=== PATIENT | female | born 1955 | race African-American/Black ===

== ENCOUNTER 2019-03-23 12:22 | Inpatient (IN) | payer MEDICAID ==
[~2019-03-23] VITALS: Ht 157.5 cm; Wt 72.6 kg
[2019-03-23] MEDS ORDERED: Thiamine 100mg tab ORAL ONE (12:30)
[2019-03-23] MEDS ORDERED: Albuterol/Ipratropium 3ml neb HHN ONE (12:30)
--- NOTE | 2019-03-23 12:50 | NUR ---
ED Nurse Note: Patient brought in by ambulance from longterm due to evaluation. Per patient, patient left the facility, had a beer and came back to the facility today. Patient awake, alert, oriented x 3. Regular, unlabored breathing noted. Reports no pain. No facial grimacing or guarding noted. Placed patient on teletypesetter monitor. Bed in lowest position. Provided warm blanket.
--- NOTE | 2019-03-23 12:51 | NUR ---
ED Nurse Note: RN attempted to insert IV x 1, but unsucessful at this time. Covered RUE with warm blanket. Patient tolerated the procedure without difficulty.
--- NOTE | 2019-03-23 12:55 | NUR ---
ED Nurse Note: RT contacted fro breathing tx.
--- NOTE | 2019-03-23 13:14 | NUR ---
ED Nurse Note: certified hyperbaric technician contacted for blood draw. Will be here within 15-20 min.
[2019-03-23 13:36] VITALS: BP 150/74
--- NOTE | 2019-03-23 13:43 | NUR ---
ED Nurse Note:urine sent to labs
[2019-03-23 14:31] LABS: BASOPHILS % (AUTO) 1.6 % (0.0-2.0); EOSINOPHILS % (AUTO) 5.1 % (0.0-3.0); HEMATOCRIT 38.8 % (37.0-47.0); MEAN CORPUSCULAR VOLUME 84 FL (80-99); MONOCYTES % (AUTO) 17.7 % (1.0-10.0); NEUTROPHILS % (AUTO) 51.6 % (45.0-75.0); PLATELET COUNT 355 K/UL (150-450); RED CELL DISTRIBUTION WIDTH 12.5 % (11.6-14.8); WHITE BLOOD COUNT 3.5 K/UL (4.8-10.8)
[2019-03-23 14:55] LABS: ANION GAP 8 mmol/L (5-15); BLOOD UREA NITROGEN 18 mg/dL (7-18); CALCIUM 9.6 MG/DL (8.5-10.1); CARBON DIOXIDE 26 MMOL/L (21-32); CHLORIDE 106 MMOL/L (98-107); CREATININE 1.1 MG/DL (0.55-1.30); POTASSIUM 3.9 MMOL/L (3.5-5.1); SODIUM 140 MMOL/L (136-145)
--- NOTE | 2019-03-23 15:08 | Emergency Room Report ---
History of Present Illness General Chief Complaint: General Complaint Source: Medical Record Present Illness HPI She is a 64-year-old female sent in from nursing facility after increased altered mental status and confusion. Patient had some prior history of COPD as well as schizophrenia. She was noted to be more confused than usual. She apparently had become confused at her facility. Gradual onset of symptoms. Denies any vomiting or diarrhea. History is limited by poor historian. Allergies: Uncoded Allergies: PENICILLIN (Allergy, Unknown, 03/23/19) Patient History Past Medical History: see triage record Reviewed Nursing Documentation: PMH: Agreed; PSxH: Agreed Nursing Documentation-PMH Past Medical History: No History, Except For Hx Cardiac Problems: Yes - Cardiomyopathy, CAD, heart failure, hyperlipidemia Hx Hypertension: Yes - DVT in LLE Hx Gastrointestinal Problems: Yes - Liver Cirrhosis, GERD History Of Psychiatric Problem: Yes - Schizophrenia Hx Neurological Problems: Yes - Dementia Hx Cerebrovascular Accident: Yes - left non-dominant side Review of Systems All Other Systems: negative except mentioned in HPI Physical Exam Vital Signs Date Time Temp Pulse Resp B/P (MAP) Pulse Ox O2 Delivery O2 Flow Rate FiO2 03/23/19 12:21 98.4 110 18 170/93 (118) 94 Room Air 03/23/19 13:26 21 Sp02 EP Interpretation: reviewed, normal General Appearance: normal inspection, well appearing, no apparent distress, alert, GCS 15 Head: atraumatic ENT: normal ENT inspection, hearing grossly normal, normal voice Neck: normal inspection, full range of motion, supple, no bony tend Respiratory: normal inspection, lungs clear, normal breath sounds, no respiratory distress, no retraction, no wheezing Cardiovascular #1: regular rate, rhythm, no edema Gastrointestinal: normal inspection, normal bowel sounds, non tender, soft, no guarding, no hernia Genitourinary: no CVA tenderness Musculoskeletal: normal inspection, back normal, normal range of motion Neurologic: normal inspection, alert, oriented x3, responsive, speech normal Psychiatric: normal inspection, judgement/insight normal, mood/affect normal Medical Decision Making Diagnostic Impression: Primary Impression: Encephalopathy Additional Impression: Leukopenia ER Course Patient presented for altered mental status. Differential diagnosis included but was not limited to encephalopathy, anemia, ischemic stroke, subarachnoid hemorrhage, hypoglycemia, spinal cord injury, neurodegenerative disorder, urinary tract infection, hypoxemia. Because of complexity of patient's case laboratory tests and imaging studies were ordered. Patient was noted to have some prior history of schizophrenia. Is unclear what the patient's baseline mental status is and patient was noted to have some difficulty with respirations. She was given breathing treatment with some improvement in her breathing. Lab testing showed some evidence of leukopenia. Dr. Niraj Lau was contacted for inpatient management due to primary care physician. Labs Test 03/23/19 13:40 03/23/19 14:15 Urine Opiates Screen Negative (NEGATIVE) Urine Barbiturates Screen Negative (NEGATIVE) Phencyclidine (PCP) Screen Negative (NEGATIVE) Urine Amphetamines Screen Negative (NEGATIVE) Urine Benzodiazepines Screen Negative (NEGATIVE) Urine Cocaine Screen Negative (NEGATIVE) Urine Marijuana (THC) Screen Negative (NEGATIVE) White Blood Count 3.5 K/UL (4.8-10.8) Red Blood Count 4.60 M/UL (4.20-5.40) Hemoglobin 13.0 G/DL (12.0-16.0) Hematocrit 38.8 % (37.0-47.0) Mean Corpuscular Volume 84 FL (80-99) Mean Corpuscular Hemoglobin 28.2 PG (27.0-31.0) Mean Corpuscular Hemoglobin Concent 33.4 G/DL (32.0-36.0) Red Cell Distribution Width 12.5 % (11.6-14.8) Platelet Count 355 K/UL (150-450) Mean Platelet Volume 4.8 FL (6.5-10.1) Neutrophils (%) (Auto) 51.6 % (45.0-75.0) Lymphocytes (%) (Auto) 24.0 % (20.0-45.0) Monocytes (%) (Auto) 17.7 % (1.0-10.0) Eosinophils (%) (Auto) 5.1 % (0.0-3.0) Basophils (%) (Auto) 1.6 % (0.0-2.0) Sodium Level 140 MMOL/L (136-145) Potassium Level 3.9 MMOL/L (3.5-5.1) Chloride Level 106 MMOL/L (98-107) Carbon Dioxide Level 26 MMOL/L (21-32) Anion Gap 8 mmol/L (5-15) Blood Urea Nitrogen 18 mg/dL (7-18) Creatinine 1.1 MG/DL (0.55-1.30) Estimat Glomerular Filtration Rate > 60 mL/min (>60) Glucose Level 101 MG/DL (74-106) Calcium Level 9.6 MG/DL (8.5-10.1) Last Vital Signs Date Time Temp Pulse Resp B/P (MAP) Pulse Ox O2 Delivery O2 Flow Rate FiO2 03/23/19 13:43 63 16 Room Air 21 03/23/19 13:36 98.4 150/74 100 Status: improved Disposition: HOME, SELF-CARE Condition: Stable Referrals: Niraj Lau MD (PCP) Ever Reeves MD Mar 23, 2019 15:08
[2019-03-23 15:09] LABS: ALANINE AMINOTRANSFERASE 28 U/L (12-78); ALBUMIN 3.5 G/DL (3.4-5.0); ALBUMIN/GLOBULIN RATIO 0.7 (1.0-2.7); ALKALINE PHOSPHATASE 153 U/L (46-116); ASPARTATE AMINO TRANSFERASE 24 U/L (15-37); BILIRUBIN,TOTAL 0.5 MG/DL (0.2-1.0)
[2019-03-23 15:40] VITALS: BP 138/86
[2019-03-23] MEDS ORDERED: COLACE100 MG ORAL (16:06)
[2019-03-23] MEDS ORDERED: XARELTO10 MG ORAL (16:06)
[2019-03-23] MEDS ORDERED: FENOFIBRATE48 MG ORAL (16:06)
[2019-03-23] MEDS ORDERED: ZYPREXA5 MG ORAL (16:06)
[2019-03-23] MEDS ORDERED: MELATONIN5 M5 ORAL (16:06)
[2019-03-23] MEDS ORDERED: SERTRALINE HCL50 MG ORAL (16:06)
[2019-03-23] MEDS ORDERED: CALCIUM CARBON500 M1 PO (16:06)
[2019-03-23] MEDS ORDERED: SPIRONOLACTONE50 MG ORAL (16:06)
[2019-03-23] MEDS ORDERED: COREG3.125 MG ORAL (16:06)
[2019-03-23] MEDS ORDERED: ISOSORBIDE DINI10 MG ORAL (16:06)
[2019-03-23] MEDS ORDERED: AMIODARONE HCL400 M1 ORAL (16:06)
[2019-03-23] MEDS ORDERED: FEROSUL325 M1 PO (16:06)
--- NOTE | 2019-03-23 16:15 | NUR ---
NURSE NOTES: Received report from CHE Chaidez RN.
--- NOTE | 2019-03-23 16:20 | NUR ---
ED Nurse Note:called report to [facility] [address] - given to nurse Colin
[2019-03-23 16:30] VITALS: BP 123/78
--- NOTE | 2019-03-23 16:30 | NUR ---
NURSE NOTES: Patient came to the unit with sharon. Pt a/o x 4. Pt has left side weakness. Skin is intact. Unit orientation was given to pt. Will continue to monitor.
--- NOTE | 2019-03-23 19:40 | NUR ---
HAND-OFF: Report given to ALICE Sandoval. Pt is stable.
[2019-03-23] MEDS ORDERED: D5 1/2NS w/KCl 20mEq 1,000 ML IV SCH (20:00)
[2019-03-23 20:29] VITALS: BP 112/66
[2019-03-23] MEDS ORDERED: Tums 500mg ORAL PRN (21:15)
--- NOTE | 2019-03-23 22:21 | NUR ---
NURSE NOTE: Pt is A/Ox4 with stable VS. Orders reviewed and physical assessment completed. Fall precautions continued. Skin is intact and heels are floated on a pillow. Pt has on depends that she brought from her senior living. Call newby is within reach. Pt complained of left leg pain, MD Niraj Stallings paged at approx [phone], voicemail left. Will continue to monitor.
[2019-03-24] VITALS (8 sets, daily range): BP systolic 112–137; BP diastolic 71–83
[2019-03-24 03:23] LABS: APPEARANCE,URINE CLEAR; BILIRUBIN, URINE NEGATIVE (NEGATIVE); COLOR,URINE PALE YELLOW; GLUCOSE, URINE (UA) NEGATIVE (NEGATIVE); KETONES,URINE NEGATIVE (NEGATIVE); LEUKOCYTE ESTERASE ,URINE 1+ (NEGATIVE); NITRITE,URINE POSITIVE (NEGATIVE); PH,URINE 5 (4.5-8.0); PROTEIN,URINE NEGATIVE (NEGATIVE); UROBILINOGEN,URINE NORMAL MG/DL (0.0-1.0)
[2019-03-24 06:52] LABS: % IRON SATURATION 17 % (15-50); IRON 54 ug/dL (50-175); TOTAL IRON BINDING CAPACITY 319 ug/dL (250-450)
[2019-03-24 06:56] LABS: ALANINE AMINOTRANSFERASE 25 U/L (12-78); ALBUMIN 2.9 G/DL (3.4-5.0); ALBUMIN/GLOBULIN RATIO 0.7 (1.0-2.7); ALKALINE PHOSPHATASE 141 U/L (46-116); ANION GAP 5 mmol/L (5-15); ASPARTATE AMINO TRANSFERASE 19 U/L (15-37); BILIRUBIN,TOTAL 0.3 MG/DL (0.2-1.0); BLOOD UREA NITROGEN 22 mg/dL (7-18); CARBON DIOXIDE 28 MMOL/L (21-32); CHLORIDE 107 MMOL/L (98-107); CHOLESTEROL 241 MG/DL (< 200); CREATININE 1.2 MG/DL (0.55-1.30); FERRITIN 54 NG/ML (8-388); HDL CHOLESTEROL 39 MG/DL (40-60); SODIUM 140 MMOL/L (136-145); TRIGLYCERIDES 153 MG/DL (30-150)
[2019-03-24 07:29] LABS: GAMMA GLUTAMYL TRANSPEPTIDASE 86 U/L (5-85); PHOSPHORUS 3.2 MG/DL (2.5-4.9)
[2019-03-24 07:35] LABS: HEMATOCRIT 35.1 % (37.0-47.0); HEMOGLOBIN 11.8 G/DL (12.0-16.0); MEAN CORPUSCULAR VOLUME 85 FL (80-99); PLATELET COUNT 300 K/UL (150-450); RED BLOOD COUNT 4.14 M/UL (4.20-5.40); RED CELL DISTRIBUTION WIDTH 12.2 % (11.6-14.8); WHITE BLOOD COUNT 3.2 K/UL (4.8-10.8)
[2019-03-24] MEDS ORDERED: Spironolactone 50mg tab ORAL SCH (09:00)
[2019-03-24] MEDS: Docusate 100mg cap ORAL SCH ×3 (09:00→18:00)
[2019-03-24] MEDS ORDERED: Sertraline 50mg tab ORAL SCH (09:00)
[2019-03-24] MEDS ORDERED: Amiodarone 200mg tab ORAL ONE (09:00)
[2019-03-24] MEDS ORDERED: Xarelto 10mg tab ORAL SCH (09:00)
[2019-03-24] MEDS ORDERED: Thiamine 100mg tab ORAL SCH (09:00)
--- NOTE | 2019-03-24 09:20 | Consultation ---
History of Present Illness General Date patient seen: Mar 24, 2019 Present Illness Allergies: Coded Allergies: PENICILLINS (Verified Allergy, Intermediate, Hives, 03/23/19) Medication History Scheduled Amiodarone Hcl* (Amiodarone Hcl*), 200 MG ORAL EVERY 12 HOURS, (Reported) Carvedilol (Coreg), 3.125 MG ORAL EVERY 12 HOURS, (Reported) Docusate Sodium* (Colace*), 100 MG ORAL DAILY, (Reported) Fenofibrate Nanocrystallized (Fenofibrate), 48 MG ORAL DAILY, (Reported) Isosorbide Dinitrate* (Isordil*), 20 MG ORAL EVERY 6 HOURS, (Reported) Olanzapine* (Zyprexa*), 5 MG ORAL DAILY, (Reported) Rivaroxaban (Xarelto*), 20 MG ORAL DAILY, (Reported) Sertraline Hcl* (Zoloft*), 50 MG ORAL DAILY, (Reported) Spironolactone* (Aldactone*), 50 MG ORAL DAILY, (Reported) Scheduled PRN Melatonin (Melatonin), 5 MG ORAL BEDTIME PRN for Insomnia, (Reported) Miscellaneous Medications Calcium Carbonate (Calcium Carbonate), 500 MG PO, (Reported) Ferrous Sulfate (Ferosul), 325 MG PO, (Reported) Patient History Healthcare decision maker Resuscitation status Full Code Advanced Directive on File Physical Exam Last 24 Hour Vital Signs Date Time Temp Pulse Resp B/P (MAP) Pulse Ox O2 Delivery O2 Flow Rate FiO2 03/24/19 08:00 98.4 66 18 120/71 (87) 97 03/24/19 05:32 117/78 03/24/19 04:22 98.1 62 18 123/80 (94) 94 03/24/19 00:00 97.7 65 18 112/73 (86) 94 03/23/19 22:02 114/72 03/23/19 20:29 98.1 74 20 112/66 (81) 98 03/23/19 20:19 74 112/66 03/23/19 16:47 Room Air 03/23/19 16:30 99.2 77 16 123/78 (93) 98 03/23/19 16:27 98.4 69 16 138/86 100 Room Air 21 03/23/19 15:40 98.4 69 16 138/86 100 Room Air 21 03/23/19 13:43 63 16 Room Air 21 03/23/19 13:36 98.4 72 16 150/74 100 Room Air 21 03/23/19 13:28 63 16 100 Room Air 21 62 18 98 03/23/19 13:26 86 20 99 Room Air 21 03/23/19 12:21 98.4 110 18 170/93 (118) 94 Room Air Intake and Output 03/23/19 03/24/19 19:00 07:00 Intake Total 620 ml 740 ml Balance 620 ml 740 ml Intake Oral 620 ml 240 ml IV Total 500 ml # Voids 1 2 Laboratory Tests Test 03/23/19 13:40 03/23/19 14:15 03/23/19 23:30 03/24/19 04:50 Urine Opiates Screen Negative (NEGATIVE) Urine Barbiturates Screen Negative (NEGATIVE) Phencyclidine (PCP) Screen Negative (NEGATIVE) Urine Amphetamines Screen Negative (NEGATIVE) Urine Benzodiazepines Screen Negative (NEGATIVE) Urine Cocaine Screen Negative (NEGATIVE) Urine Marijuana (THC) Screen Negative (NEGATIVE) White Blood Count 3.5 K/UL (4.8-10.8) L 3.2 K/UL (4.8-10.8) L Red Blood Count 4.60 M/UL (4.20-5.40) 4.14 M/UL (4.20-5.40) L Hemoglobin 13.0 G/DL (12.0-16.0) 11.8 G/DL (12.0-16.0) L Hematocrit 38.8 % (37.0-47.0) 35.1 % (37.0-47.0) L Mean Corpuscular Volume 84 FL (80-99) 85 FL (80-99) Mean Corpuscular Hemoglobin 28.2 PG (27.0-31.0) 28.4 PG (27.0-31.0) Mean Corpuscular Hemoglobin Concent 33.4 G/DL (32.0-36.0) 33.5 G/DL (32.0-36.0) Red Cell Distribution Width 12.5 % (11.6-14.8) 12.2 % (11.6-14.8) Platelet Count 355 K/UL (150-450) 300 K/UL (150-450) Mean Platelet Volume 4.8 FL (6.5-10.1) L 4.9 FL (6.5-10.1) L Neutrophils (%) (Auto) 51.6 % (45.0-75.0) % (45.0-75.0) Lymphocytes (%) (Auto) 24.0 % (20.0-45.0) % (20.0-45.0) Monocytes (%) (Auto) 17.7 % (1.0-10.0) H % (1.0-10.0) Eosinophils (%) (Auto) 5.1 % (0.0-3.0) H % (0.0-3.0) Basophils (%) (Auto) 1.6 % (0.0-2.0) % (0.0-2.0) Sodium Level 140 MMOL/L (136-145) 140 MMOL/L (136-145) Potassium Level 3.9 MMOL/L (3.5-5.1) 4.0 MMOL/L (3.5-5.1) Chloride Level 106 MMOL/L (98-107) 107 MMOL/L (98-107) Carbon Dioxide Level 26 MMOL/L (21-32) 28 MMOL/L (21-32) Anion Gap 8 mmol/L (5-15) 5 mmol/L (5-15) Blood Urea Nitrogen 18 mg/dL (7-18) 22 mg/dL (7-18) H Creatinine 1.1 MG/DL (0.55-1.30) 1.2 MG/DL (0.55-1.30) Estimat Glomerular Filtration Rate > 60 mL/min (>60) 54.9 mL/min (>60) Glucose Level 101 MG/DL (74-106) 109 MG/DL (74-106) H Calcium Level 9.6 MG/DL (8.5-10.1) 9.0 MG/DL (8.5-10.1) Total Bilirubin 0.5 MG/DL (0.2-1.0) 0.3 MG/DL (0.2-1.0) Aspartate Amino Transf (AST/SGOT) 24 U/L (15-37) 19 U/L (15-37) Alanine Aminotransferase (ALT/SGPT) 28 U/L (12-78) 25 U/L (12-78) Alkaline Phosphatase 153 U/L (46-116) H 141 U/L (46-116) H C-Reactive Protein, Quantitative 2.4 mg/dL (0.00-0.90) H 1.9 mg/dL (0.00-0.90) H Total Protein 8.3 G/DL (6.4-8.2) H 7.3 G/DL (6.4-8.2) Albumin 3.5 G/DL (3.4-5.0) 2.9 G/DL (3.4-5.0) L Globulin 4.8 g/dL 4.4 g/dL Albumin/Globulin Ratio 0.7 (1.0-2.7) L 0.7 (1.0-2.7) L Thyroid Stimulating Hormone (TSH) 0.607 uiU/mL (0.358-3.740) 0.977 uiU/mL (0.358-3.740) Serum Alcohol < 3 mg/dL Urine Color Pale yellow Urine Appearance Clear Urine pH 5 (4.5-8.0) Urine Specific [place] 1.015 (1.005-1.035) Urine Protein Negative (NEGATIVE) Urine Glucose (UA) Negative (NEGATIVE) Urine Ketones Negative (NEGATIVE) Urine Blood Negative (NEGATIVE) Urine Nitrite Positive (NEGATIVE) H Urine Bilirubin Negative (NEGATIVE) Urine Urobilinogen Normal MG/DL (0.0-1.0) Urine Leukocyte Esterase 1+ (NEGATIVE) H Urine RBC 0-2 /HPF (0 - 2) Urine WBC 0-2 /HPF (0 - 2) Urine Squamous Epithelial Cells Few /LPF (NONE/OCC) Urine Bacteria Few /HPF (NONE) Differential Total Cells Counted 100 Neutrophils % (Manual) 56 % (45-75) Lymphocytes % (Manual) 22 % (20-45) Monocytes % (Manual) 15 % (1-10) H Eosinophils % (Manual) 6 % (0-3) H Basophils % (Manual) 1 % (0-2) Band Neutrophils 0 % (0-8) Platelet Estimate Adequate Platelet Morphology Normal Hemoglobin A1c 5.7 % (4.3-6.0) Uric Acid 5.6 MG/DL (2.6-7.2) Phosphorus Level 3.2 MG/DL (2.5-4.9) Magnesium Level 1.8 MG/DL (1.8-2.4) Iron Level 54 ug/dL (50-175) Total Iron Binding Capacity 319 ug/dL (250-450) Percent Iron Saturation 17 % (15-50) Unsaturated Iron Binding 265 ug/dL (112-346) Ferritin 54 NG/ML (8-388) Gamma Glutamyl Transpeptidase 86 U/L (5-85) H Pro-B-Type Natriuretic Peptide 910 pg/mL (0-125) H Triglycerides Level 153 MG/DL (30-150) H Cholesterol Level 241 MG/DL (< 200) H LDL Cholesterol 164 mg/dL (<100) H HDL Cholesterol 39 MG/DL (40-60) L Cholesterol/HDL Ratio 6.2 (3.3-4.4) H Vitamin B12 Level 386 PG/ML (193-986) Folate 6.7 NG/ML (8.6-58.9) L Height (Feet): 5 Height (Inches): 2.00 Weight (Pounds): 160 Medications Current Medications Medications (Trade) Dose Ordered Sig/Jesús Route PRN Reason Start Time Stop Time Status Last Admin Dose Admin Calcium Carbonate (Tums) 500 mg Q6H PRN ORAL heart burn 03/23/19 21:15 04/22/19 21:14 Carvedilol (Coreg) 3.125 mg EVERY 12 HOURS ORAL 03/23/19 21:00 04/22/19 20:59 03/23/19 20:19 Dextrose/ Electrolytes 1,000 ml @ 50 mls/hr Q20H IV 03/23/19 20:00 04/22/19 19:59 03/23/19 20:16 Docusate Sodium (Colace) 100 mg TID ORAL 03/24/19 09:00 04/23/19 08:59 03/24/19 09:00 Fenofibrate (Tricor) 54 mg BEDTIME ORAL 03/24/19 21:00 04/23/19 20:59 Ferrous Sulfate (Feosol) 325 mg DAILY ORAL 03/24/19 09:00 04/23/19 08:59 03/24/19 09:00 Isosorbide Dinitrate (Isordil) 20 mg EVERY 8 HOURS ORAL 03/23/19 22:00 04/22/19 21:59 03/24/19 05:32 Olanzapine (ZyPREXA) 5 mg DAILY ORAL 03/24/19 09:00 04/23/19 08:59 03/24/19 08:59 Pantoprazole (Protonix) 40 mg EVERY 12 HOURS ORAL 03/23/19 21:00 04/22/19 20:59 03/24/19 08:59 Rivaroxaban (Xarelto) 20 mg DAILY ORAL 03/24/19 09:00 04/23/19 08:59 03/24/19 09:00 Sertraline HCl (Zoloft) 50 mg DAILY ORAL 03/24/19 09:00 04/23/19 08:59 03/24/19 08:59 Spironolactone (Aldactone) 50 mg DAILY ORAL 03/24/19 09:00 04/23/19 08:59 03/24/19 08:59 Thiamine HCl (Vitamin B1) 100 mg DAILY ORAL 03/24/19 09:00 04/23/19 08:59 03/24/19 08:59 Assessment/Plan Assessment/Plan: (1) B/L Hip pain (2) B/L Hip osteoarthritis seen dictated Adrián Heller Mar 24, 2019 09:20
[2019-03-24] MEDS ORDERED: Acetaminophen 500mg (ES) tab ORAL PRN ×3 (09:30→19:45)
--- NOTE | 2019-03-24 09:30 | NUR ---
PT EVALUATION NOTE Patient seen for initial evaluation, see complete evaluation for details. Patient presents with generalized weakness and impaired functional mobility due to pain and impaired balance. Patient requires min assist for bed mobility and transfers with FWW. Patient unable to ambulate due to pain L knee with weight bearing. Patient will benefit from skilled inpatient PT intervention to address balance, safety and strength to improve level of functional mobility. Recommend discharge to SNF once medically cleared by MD. DME needs to be determined based on patient's progress. Addendum: 03/24/19 at 1214 by AISHA ABRAMS PT Amended: Links added.
--- NOTE | 2019-03-24 10:34 | NUR ---
NURSE NOTES: Pt able to answer questions appropriately, provided with bed méndez x 2 due to pt stating she can walk. Ate well for breakfast . IV remains patent.
--- NOTE | 2019-03-24 11:01 | Consultation ---
DATE OF CONSULTATION: 03/24/2019 PAIN MANAGEMENT CONSULTATION CONSULTING PHYSICIAN: Teresa Chiang M.D. REFERRING PHYSICIAN: Niraj Lau M.D. PHYSICIAN DIRECTOR OF CULTURE: Nay Ward CHIEF COMPLAINT: Bilateral hip pain. HISTORY OF PRESENT ILLNESS: This is a 64-year-old female, who is being seen on the med/surg floor of [facility] for initial pain management consultation. The patient was admitted under the care of Dr. Lau and was transferred from [facility] to hospital after drinking 1 beer and did not know she was not allowed to drink beer while in the nursing facility and due to this was transferred to the hospital. She has been complaining of bilateral hip pain. Had a history of fracture needing open reduction and internal fixation on the left hip and due to this has been in pain. We were consulted so that the patient would have adequate pain control while here in the hospital. PAST MEDICAL HISTORY: Hypertension and high cholesterol. PAST SURGICAL HISTORY: Open reduction and internal fixation of left hip, left elbow surgery. SOCIAL HISTORY: Denies smoking tobacco. Drinks alcohol occasionally and denies IV drug abuse. ALLERGIES: Penicillin. MEDICATIONS: Amiodarone, Coreg, Colace, Isordil, Zyprexa, Xarelto, Zoloft, Aldactone, melatonin. REVIEW OF SYSTEMS: Denies rash, fever, chills, sweating, dizziness, drowsiness, blurred vision, sore throat, or change in her weight. No chest pain, palpitations, or cough. No nausea, vomiting, diarrhea, or blood in the stool or urine. No bowel or bladder incontinence. No dysuria. She is complaining of bilateral hip pain. PHYSICAL EXAMINATION: GENERAL: Alert, awake, and oriented. VITAL SIGNS: Blood pressure 120/71, heart rate is 66, oxygen saturation is 97%, respirations 18, temperature is 98.4 degrees Fahrenheit. HEENT: PERRLA. NECK: Range of motion is full in all directions. No tenderness to paracervical muscles. No adenopathy. LUNGS: Clear bilaterally. HEART: S1 and S2 regular. ABDOMEN: Soft, nontender. BACK: Range of motion is full on flexion, extension. EXTREMITIES: Upper and lower extremity motion is decreased due to the patient's condition. No cyanosis. No clubbing. Sensory is intact. Reflexes are not obtainable. No adenopathy. ASSESSMENT AND PLAN: This is a 64-year-old female with bilateral hip pain, bilateral hip osteoarthritis. The patient will be started on Tylenol 500 mg tablet every 4 hours as needed for pain. Lidoderm patch to be applied to the left hip at the site of pain 12 hours on, 12 hours hours off. The patient was discussed with Dr. Chiang and Dr. Chiang concurred. We will follow the patient. Thank you very much for the courtesy of this consultation. Teresa Chiang M.D. ALISON Ward DR: RADHA JOB#: [id number] CC: LISA
--- NOTE | 2019-03-24 12:30 | NUR ---
NURSE NOTES: Pt threw lid in hallway. Sole Inker walked to room , I have been having my light on for one hour. Pt light was not on. Attempted to give pt the bedpan was reluctant to turn. Required to be informed that she was not seated on the bedpan correctly. Pt later called sql report writer back to room . Call light remains in reach.
--- NOTE | 2019-03-24 13:37 | NUR ---
Social Work This SW received notification from Meliza to assist patient with housing, ie possible [facility]. Patient is currently non-ambulatory, requiring assistance with ADLs and ambulation and requesting to return to her SNF ([facility]). This SW spoke with admissions at [facility] who is requesting chart information to be faxed to fax [phone]. Meliza, Case Management informed.
--- NOTE | 2019-03-24 13:47 | Consultation ---
History of Present Illness General Chief Complaint: General Complaint Present Illness Allergies: Coded Allergies: PENICILLINS (Verified Allergy, Intermediate, Hives, 03/23/19) Medication History Scheduled Amiodarone Hcl* (Amiodarone Hcl*), 200 MG ORAL EVERY 12 HOURS, (Reported) Carvedilol (Coreg), 3.125 MG ORAL EVERY 12 HOURS, (Reported) Docusate Sodium* (Colace*), 100 MG ORAL DAILY, (Reported) Fenofibrate Nanocrystallized (Fenofibrate), 48 MG ORAL DAILY, (Reported) Isosorbide Dinitrate* (Isordil*), 20 MG ORAL EVERY 6 HOURS, (Reported) Olanzapine* (Zyprexa*), 5 MG ORAL DAILY, (Reported) Rivaroxaban (Xarelto*), 20 MG ORAL DAILY, (Reported) Sertraline Hcl* (Zoloft*), 50 MG ORAL DAILY, (Reported) Spironolactone* (Aldactone*), 50 MG ORAL DAILY, (Reported) Scheduled PRN Melatonin (Melatonin), 5 MG ORAL BEDTIME PRN for Insomnia, (Reported) Miscellaneous Medications Calcium Carbonate (Calcium Carbonate), 500 MG PO, (Reported) Ferrous Sulfate (Ferosul), 325 MG PO, (Reported) Patient History Healthcare decision maker Resuscitation status Full Code Advanced Directive on File Physical Exam Last 24 Hour Vital Signs Date Time Temp Pulse Resp B/P (MAP) Pulse Ox O2 Delivery O2 Flow Rate FiO2 03/24/19 12:00 98.5 62 16 136/83 (100) 97 03/24/19 08:00 98.4 66 18 120/71 (87) 97 03/24/19 05:32 117/78 03/24/19 04:22 98.1 62 18 123/80 (94) 94 03/24/19 00:00 97.7 65 18 112/73 (86) 94 03/23/19 22:02 114/72 03/23/19 20:29 98.1 74 20 112/66 (81) 98 03/23/19 20:19 74 112/66 03/23/19 16:47 Room Air 03/23/19 16:30 99.2 77 16 123/78 (93) 98 03/23/19 16:27 98.4 69 16 138/86 100 Room Air 21 03/23/19 15:40 98.4 69 16 138/86 100 Room Air 21 Intake and Output 03/23/19 03/24/19 18:59 06:59 Intake Total 620 ml 740 ml Balance 620 ml 740 ml Intake Oral 620 ml 240 ml IV Total 500 ml # Voids 1 2 Laboratory Tests Test 03/23/19 14:15 03/23/19 23:30 03/24/19 04:50 White Blood Count 3.5 K/UL (4.8-10.8) L 3.2 K/UL (4.8-10.8) L Red Blood Count 4.60 M/UL (4.20-5.40) 4.14 M/UL (4.20-5.40) L Hemoglobin 13.0 G/DL (12.0-16.0) 11.8 G/DL (12.0-16.0) L Hematocrit 38.8 % (37.0-47.0) 35.1 % (37.0-47.0) L Mean Corpuscular Volume 84 FL (80-99) 85 FL (80-99) Mean Corpuscular Hemoglobin 28.2 PG (27.0-31.0) 28.4 PG (27.0-31.0) Mean Corpuscular Hemoglobin Concent 33.4 G/DL (32.0-36.0) 33.5 G/DL (32.0-36.0) Red Cell Distribution Width 12.5 % (11.6-14.8) 12.2 % (11.6-14.8) Platelet Count 355 K/UL (150-450) 300 K/UL (150-450) Mean Platelet Volume 4.8 FL (6.5-10.1) L 4.9 FL (6.5-10.1) L Neutrophils (%) (Auto) 51.6 % (45.0-75.0) % (45.0-75.0) Lymphocytes (%) (Auto) 24.0 % (20.0-45.0) % (20.0-45.0) Monocytes (%) (Auto) 17.7 % (1.0-10.0) H % (1.0-10.0) Eosinophils (%) (Auto) 5.1 % (0.0-3.0) H % (0.0-3.0) Basophils (%) (Auto) 1.6 % (0.0-2.0) % (0.0-2.0) Sodium Level 140 MMOL/L (136-145) 140 MMOL/L (136-145) Potassium Level 3.9 MMOL/L (3.5-5.1) 4.0 MMOL/L (3.5-5.1) Chloride Level 106 MMOL/L (98-107) 107 MMOL/L (98-107) Carbon Dioxide Level 26 MMOL/L (21-32) 28 MMOL/L (21-32) Anion Gap 8 mmol/L (5-15) 5 mmol/L (5-15) Blood Urea Nitrogen 18 mg/dL (7-18) 22 mg/dL (7-18) H Creatinine 1.1 MG/DL (0.55-1.30) 1.2 MG/DL (0.55-1.30) Estimat Glomerular Filtration Rate > 60 mL/min (>60) 54.9 mL/min (>60) Glucose Level 101 MG/DL (74-106) 109 MG/DL (74-106) H Calcium Level 9.6 MG/DL (8.5-10.1) 9.0 MG/DL (8.5-10.1) Total Bilirubin 0.5 MG/DL (0.2-1.0) 0.3 MG/DL (0.2-1.0) Aspartate Amino Transf (AST/SGOT) 24 U/L (15-37) 19 U/L (15-37) Alanine Aminotransferase (ALT/SGPT) 28 U/L (12-78) 25 U/L (12-78) Alkaline Phosphatase 153 U/L (46-116) H 141 U/L (46-116) H C-Reactive Protein, Quantitative 2.4 mg/dL (0.00-0.90) H 1.9 mg/dL (0.00-0.90) H Total Protein 8.3 G/DL (6.4-8.2) H 7.3 G/DL (6.4-8.2) Albumin 3.5 G/DL (3.4-5.0) 2.9 G/DL (3.4-5.0) L Globulin 4.8 g/dL 4.4 g/dL Albumin/Globulin Ratio 0.7 (1.0-2.7) L 0.7 (1.0-2.7) L Thyroid Stimulating Hormone (TSH) 0.607 uiU/mL (0.358-3.740) 0.977 uiU/mL (0.358-3.740) Serum Alcohol < 3 mg/dL Urine Color Pale yellow Urine Appearance Clear Urine pH 5 (4.5-8.0) Urine Specific [place] 1.015 (1.005-1.035) Urine Protein Negative (NEGATIVE) Urine Glucose (UA) Negative (NEGATIVE) Urine Ketones Negative (NEGATIVE) Urine Blood Negative (NEGATIVE) Urine Nitrite Positive (NEGATIVE) H Urine Bilirubin Negative (NEGATIVE) Urine Urobilinogen Normal MG/DL (0.0-1.0) Urine Leukocyte Esterase 1+ (NEGATIVE) H Urine RBC 0-2 /HPF (0 - 2) Urine WBC 0-2 /HPF (0 - 2) Urine Squamous Epithelial Cells Few /LPF (NONE/OCC) Urine Bacteria Few /HPF (NONE) Differential Total Cells Counted 100 Neutrophils % (Manual) 56 % (45-75) Lymphocytes % (Manual) 22 % (20-45) Monocytes % (Manual) 15 % (1-10) H Eosinophils % (Manual) 6 % (0-3) H Basophils % (Manual) 1 % (0-2) Band Neutrophils 0 % (0-8) Platelet Estimate Adequate Platelet Morphology Normal Hemoglobin A1c 5.7 % (4.3-6.0) Uric Acid 5.6 MG/DL (2.6-7.2) Phosphorus Level 3.2 MG/DL (2.5-4.9) Magnesium Level 1.8 MG/DL (1.8-2.4) Iron Level 54 ug/dL (50-175) Total Iron Binding Capacity 319 ug/dL (250-450) Percent Iron Saturation 17 % (15-50) Unsaturated Iron Binding 265 ug/dL (112-346) Ferritin 54 NG/ML (8-388) Gamma Glutamyl Transpeptidase 86 U/L (5-85) H Pro-B-Type Natriuretic Peptide 910 pg/mL (0-125) H Triglycerides Level 153 MG/DL (30-150) H Cholesterol Level 241 MG/DL (< 200) H LDL Cholesterol 164 mg/dL (<100) H HDL Cholesterol 39 MG/DL (40-60) L Cholesterol/HDL Ratio 6.2 (3.3-4.4) H Vitamin B12 Level 386 PG/ML (193-986) Folate 6.7 NG/ML (8.6-58.9) L Height (Feet): 5 Height (Inches): 2.00 Weight (Pounds): 160 Medications Current Medications Medications (Trade) Dose Ordered Sig/Jesús Route PRN Reason Start Time Stop Time Status Last Admin Dose Admin Acetaminophen (Tylenol) 500 mg Q4H PRN ORAL Mild Pain/Temp > 100.5 03/24/19 09:30 04/23/19 09:29 Calcium Carbonate (Tums) 500 mg Q6H PRN ORAL heart burn 03/23/19 21:15 04/22/19 21:14 Carvedilol (Coreg) 3.125 mg EVERY 12 HOURS ORAL 03/23/19 21:00 04/22/19 20:59 03/23/19 20:19 Dextrose/ Electrolytes 1,000 ml @ 50 mls/hr Q20H IV 03/23/19 20:00 04/22/19 19:59 03/23/19 20:16 Docusate Sodium (Colace) 100 mg TID ORAL 03/24/19 09:00 04/23/19 08:59 03/24/19 09:00 Fenofibrate (Tricor) 54 mg BEDTIME ORAL 03/24/19 21:00 04/23/19 20:59 Folic Acid (Folate) 2 mg DAILY ORAL 03/24/19 10:30 04/23/19 10:29 03/24/19 10:44 Isosorbide Dinitrate (Isordil) 20 mg EVERY 8 HOURS ORAL 03/23/19 22:00 04/22/19 21:59 03/24/19 05:32 Lidocaine (Lidoderm 5% PATCH) 1 patch DAILY TDERMAL 03/24/19 09:30 04/23/19 09:29 03/24/19 10:42 Olanzapine (ZyPREXA) 5 mg DAILY ORAL 03/24/19 09:00 04/23/19 08:59 03/24/19 08:59 Pantoprazole (Protonix) 40 mg EVERY 12 HOURS ORAL 03/23/19 21:00 04/22/19 20:59 03/24/19 08:59 Rivaroxaban (Xarelto) 20 mg DAILY ORAL 03/24/19 09:00 04/23/19 08:59 03/24/19 09:00 Sertraline HCl (Zoloft) 50 mg DAILY ORAL 03/24/19 09:00 04/23/19 08:59 03/24/19 08:59 Spironolactone (Aldactone) 50 mg DAILY ORAL 03/24/19 09:00 04/23/19 08:59 03/24/19 08:59 Thiamine HCl (Vitamin B1) 100 mg DAILY ORAL 03/24/19 09:00 04/23/19 08:59 03/24/19 08:59 Assessment/Plan Assessment/Plan: Hematology Consultation REQ MD: Neena Clark DOS: 03/24/19 RFC: Leukopenia HPI She is a 64-year-old female sent in from nursing facility after increased altered mental status and confusion. Patient had some prior history of COPD as well as schizophrenia. She was noted to be more confused than usual. She apparently had become confused at her facility. Gradual onset of symptoms. Denies any vomiting or diarrhea. History is limited by poor historian. Noted to have b/l hip pain, started on opiates, per pain management. Uncoded Allergies: PENICILLIN (Allergy, Unknown, 03/23/19) Patient History Past Medical History: see triage record Reviewed Nursing Documentation: PMH: Agreed; PSxH: Agreed Nursing Documentation-PMH Past Medical History: No History, Except For Hx Cardiac Problems: Yes - Cardiomyopathy, CAD, heart failure, hyperlipidemia Hx Hypertension: Yes - DVT in LLE Hx Gastrointestinal Problems: Yes - Liver Cirrhosis, GERD History Of Psychiatric Problem: Yes - Schizophrenia Hx Neurological Problems: Yes - Dementia Hx Cerebrovascular Accident: Yes - left non-dominant side Review of Systems All Other Systems: negative except mentioned in HPI Physical Exam: Vitals: reviewed General Appearance: NAD HEENT: normocephalic, atraumatic Neck: non-tender, normal alignment Respiratory/Chest: normal breath sounds bilaterally Cardiovascular/Chest: normal peripheral pulses, normal rate Abdomen: normal bowel sounds, soft, nontender Extremities: normal range of motion Labs: noted Imaging: reviewed Assessment and Recs: # Leukopenia -- multiple etiologies could be related to underlying liver disease , medication-induced, infection versus viral syndrome --> peripheral smear has been ordered and does not show significant abnormalities --> Medications have been reviewed --> Continue to monitor for improvement, trend cbc --> Hep panel and HIV have been ordered --> US abd ordered to r/o cirrhosis and hepatosplenomegaly --> reverse isolation if ANC is <2000 --> Give neupogen if ANC <1000 # Anemia of chronic disease --> currently downtrending 13-->11.8 --> anemia panel if hgb <10 # Hyperproteinemia --> given it has improved on 2nd day less likely mm --> monitor in future as needed # ELevation alk phos --> ggt is elevated --> likely related to liver damage # Encephalopathy The timing of this note does not necessarily reflect the time of the patient was seen. Greatly appreciate consultation. Jose Cheung MD Mar 24, 2019 13:47
--- NOTE | 2019-03-24 13:51 | NUR ---
NURSE NOTES: Dr Lau here made aware that pt asked for IV to be removed. Pt yelling I want this in my hand. I dont want these fluids Yall just want my money" Attempted to redirect. Lei Seller spoke to daughter informed of pt bx. Stated that is mother bx. Call light is in reach . Current plan will be followed
--- NOTE | 2019-03-24 13:58 | NUR ---
NURSE NOTES: Attempted to yovany Dr velez to inform him that pt refused the IV fluids and IV line
--- NOTE | 2019-03-24 14:40 | Cardiac Electrophysiology PN ---
Subjective Subjective [id number] Objective Last 24 Hour Vital Signs Date Time Temp Pulse Resp B/P (MAP) Pulse Ox O2 Delivery O2 Flow Rate FiO2 03/24/19 12:00 98.5 62 16 136/83 (100) 97 03/24/19 08:00 98.4 66 18 120/71 (87) 97 03/24/19 05:32 117/78 03/24/19 04:22 98.1 62 18 123/80 (94) 94 03/24/19 00:00 97.7 65 18 112/73 (86) 94 03/23/19 22:02 114/72 03/23/19 20:29 98.1 74 20 112/66 (81) 98 03/23/19 20:19 74 112/66 03/23/19 16:47 Room Air 03/23/19 16:30 99.2 77 16 123/78 (93) 98 03/23/19 16:27 98.4 69 16 138/86 100 Room Air 21 03/23/19 15:40 98.4 69 16 138/86 100 Room Air 21 Intake and Output 03/23/19 03/24/19 18:59 06:59 Intake Total 620 ml 740 ml Balance 620 ml 740 ml Intake Oral 620 ml 240 ml IV Total 500 ml # Voids 1 2 Laboratory Tests Test 03/23/19 23:30 03/24/19 04:50 Urine Color Pale yellow Urine Appearance Clear Urine pH 5 (4.5-8.0) Urine Specific [place] 1.015 (1.005-1.035) Urine Protein Negative (NEGATIVE) Urine Glucose (UA) Negative (NEGATIVE) Urine Ketones Negative (NEGATIVE) Urine Blood Negative (NEGATIVE) Urine Nitrite Positive (NEGATIVE) H Urine Bilirubin Negative (NEGATIVE) Urine Urobilinogen Normal MG/DL (0.0-1.0) Urine Leukocyte Esterase 1+ (NEGATIVE) H Urine RBC 0-2 /HPF (0 - 2) Urine WBC 0-2 /HPF (0 - 2) Urine Squamous Epithelial Cells Few /LPF (NONE/OCC) Urine Bacteria Few /HPF (NONE) White Blood Count 3.2 K/UL (4.8-10.8) L Red Blood Count 4.14 M/UL (4.20-5.40) L Hemoglobin 11.8 G/DL (12.0-16.0) L Hematocrit 35.1 % (37.0-47.0) L Mean Corpuscular Volume 85 FL (80-99) Mean Corpuscular Hemoglobin 28.4 PG (27.0-31.0) Mean Corpuscular Hemoglobin Concent 33.5 G/DL (32.0-36.0) Red Cell Distribution Width 12.2 % (11.6-14.8) Platelet Count 300 K/UL (150-450) Mean Platelet Volume 4.9 FL (6.5-10.1) L Neutrophils (%) (Auto) % (45.0-75.0) Lymphocytes (%) (Auto) % (20.0-45.0) Monocytes (%) (Auto) % (1.0-10.0) Eosinophils (%) (Auto) % (0.0-3.0) Basophils (%) (Auto) % (0.0-2.0) Differential Total Cells Counted 100 Neutrophils % (Manual) 56 % (45-75) Lymphocytes % (Manual) 22 % (20-45) Monocytes % (Manual) 15 % (1-10) H Eosinophils % (Manual) 6 % (0-3) H Basophils % (Manual) 1 % (0-2) Band Neutrophils 0 % (0-8) Platelet Estimate Adequate Platelet Morphology Normal Sodium Level 140 MMOL/L (136-145) Potassium Level 4.0 MMOL/L (3.5-5.1) Chloride Level 107 MMOL/L (98-107) Carbon Dioxide Level 28 MMOL/L (21-32) Anion Gap 5 mmol/L (5-15) Blood Urea Nitrogen 22 mg/dL (7-18) H Creatinine 1.2 MG/DL (0.55-1.30) Estimat Glomerular Filtration Rate 54.9 mL/min (>60) Glucose Level 109 MG/DL (74-106) H Hemoglobin A1c 5.7 % (4.3-6.0) Uric Acid 5.6 MG/DL (2.6-7.2) Calcium Level 9.0 MG/DL (8.5-10.1) Phosphorus Level 3.2 MG/DL (2.5-4.9) Magnesium Level 1.8 MG/DL (1.8-2.4) Iron Level 54 ug/dL (50-175) Total Iron Binding Capacity 319 ug/dL (250-450) Percent Iron Saturation 17 % (15-50) Unsaturated Iron Binding 265 ug/dL (112-346) Ferritin 54 NG/ML (8-388) Total Bilirubin 0.3 MG/DL (0.2-1.0) Gamma Glutamyl Transpeptidase 86 U/L (5-85) H Aspartate Amino Transf (AST/SGOT) 19 U/L (15-37) Alanine Aminotransferase (ALT/SGPT) 25 U/L (12-78) Alkaline Phosphatase 141 U/L (46-116) H C-Reactive Protein, Quantitative 1.9 mg/dL (0.00-0.90) H Pro-B-Type Natriuretic Peptide 910 pg/mL (0-125) H Total Protein 7.3 G/DL (6.4-8.2) Albumin 2.9 G/DL (3.4-5.0) L Globulin 4.4 g/dL Albumin/Globulin Ratio 0.7 (1.0-2.7) L Triglycerides Level 153 MG/DL (30-150) H Cholesterol Level 241 MG/DL (< 200) H LDL Cholesterol 164 mg/dL (<100) H HDL Cholesterol 39 MG/DL (40-60) L Cholesterol/HDL Ratio 6.2 (3.3-4.4) H Vitamin B12 Level 386 PG/ML (193-986) Folate 6.7 NG/ML (8.6-58.9) L Thyroid Stimulating Hormone (TSH) 0.977 uiU/mL (0.358-3.740) Hepatitis A IgM Antibody Pending Hepatitis B Surface Antigen Pending Hepatitis B Core IgM Antibody Pending Hepatitis C Antibody Pending HIV (1&2) Antibody Rapid Negative (NEGATIVE) Justus Dia MD Mar 24, 2019 14:40
--- NOTE | 2019-03-24 15:32 | NUR ---
NURSE NOTES: Pt sleeping at this time. Bed is in safe position
--- NOTE | 2019-03-24 15:35 | NUR ---
NURSE NOTES: Dr Mcdaniel office reached message left with answering service that pt has refused IV
--- NOTE | 2019-03-24 15:38 | Consultation ---
Consult Note Consult Note I was asked to eval the patient at the request of dr bedoya Patient interviewed states that was sent to hospital for drinking one beer wants to be discharged ! ER: She is a 64-year-old female sent in from nursing facility after increased altered mental status and confusion. Patient had some prior history of COPD as well as schizophrenia. She was noted to be more confused than usual. She apparently had become confused at her facility. Gradual onset of symptoms. Denies any vomiting or diarrhea. History is limited by poor historian. PENICILLIN (Allergy, Unknown, 03/23/19) Past Medical History: No History, Except For Hx Cardiac Problems: Yes - Cardiomyopathy, CAD, heart failure, hyperlipidemia Hx Hypertension: Yes - DVT in LLE Hx Gastrointestinal Problems: Yes - Liver Cirrhosis, GERD History Of Psychiatric Problem: Yes - Schizophrenia Hx Neurological Problems: Yes - Dementia Hx Cerebrovascular Accident: Yes - left non-dominant side . Assessment/Plan h/o Cardiomyopathy h/o Cirrhosis ETOH abuse Schizophrenia Mild Anemia DC IV 2D Echo keep BP under control Per Psych per orders Mike Yeboah MD Mar 24, 2019 15:38
--- NOTE | 2019-03-24 17:45 | Consultation ---
DATE OF CONSULTATION: 03/24/2019 CARDIOLOGY CONSULTATION CONSULTING PHYSICIAN: Justus Dia M.D. REFERRING PHYSICIAN: Niraj Lau M.D. REASON FOR CONSULTATION: Management of hypertension and shortness of breath. HISTORY OF PRESENT ILLNESS: The patient is a very pleasant 64-year-old lady with history of hypertension and coronary artery disease with history of paranoid schizophrenia, anemia, and anxiety disorder as well as history of cardiomyopathy who was admitted to [facility]. The [facility] was [facility] from [facility] after altered mental status and confusion. The patient also has history of COPD. The patient was admitted and a Cardiology consultation was obtained for further evaluation and management. REVIEW OF SYSTEMS: Negative other than what is mentioned in the history of present illness. At this time, the patient denies any chest pain, shortness of breath. PAST MEDICAL HISTORY: Hypertension, coronary artery disease, congestive heart failure, hyperlipidemia as well as lower extremity DVT, liver cirrhosis, schizophrenia, dementia. PHYSICAL EXAMINATION: VITAL SIGNS: Show blood pressure of 136/83, pulse 62, respirations 16, temperature 98.5. HEAD AND NECK: Showed no JVD. LUNGS: Clear. CARDIOVASCULAR: Shows regular S1 and S2 with no gallop. ABDOMEN: Soft. EXTREMITIES: No pitting edema. LABORATORY AND DIAGNOSTIC DATA: Labs show white count of 3.2, hemoglobin 11.8, hematocrit 35.1, and platelet count 300. Sodium 140, potassium 4.0, BUN of 22, creatinine 1.2, and glucose of 109. Urine tox was negative. ASSESSMENT AND PLAN: 1. History of DVT. The patient is on Xarelto 20 mg daily. I am not sure if the patient is also in atrial fibrillation. We will get EKG and echocardiogram. Transfer the patient to telemetry. 2. Hypertension, on Coreg 3.125 mg b.i.d. and Aldactone 50 mg daily. The patient is also on Isordil every 8 hours. 3. Coronary artery disease. Currently denies any chest pain. On Coreg and Isordil. 4. hyperlipidemia, on TriCor. 5. History of schizophrenia, on Zyprexa. 6. Altered mental status, etiology remains unclear at this time. Thank you very much for allowing me to participate in the care of this patient. Please do not hesitate to contact me for any questions regarding my evaluation. Sincerely, Justus Dia M.D. DR: MORAIMA JOB#: [id number] CC:
--- NOTE | 2019-03-24 17:51 | NUR ---
NURSE NOTES: Dr Aranda here earlier in shift gave orders for transfer to Tele. Pt transferred report given to Dung. Fot care to be taken over. Pt refused IV line Dung RN made aware of refusal, and pt bx
--- NOTE | 2019-03-24 18:17 | NUR ---
NURSE NOTES: Patient transferred to tele from 3E--received report after patient situated in room from ALICE Valdez. Dr Lau called for transfer of orders at 1809. Awaiting call back--=-Dr Lau returned call at 1818 stated to continue all orders from . Made aware that patient has no IV but going to insert now after patient agreed. And aware that patient has refused the abd US. Bed in lowest , locked position with call newby in reach. Ate dinner ater refusing abd u/s with no nvd. No sign of respiratory or cardiac distress. Appears SR on tele. Addendum: 03/24/19 at 1928 by Rafael Mane RN IV access obtained (R hand #[id number]). Patient appears comfortable after using bedpan and voiding clear yellow. Hygiene provided and patient is watching TV.
--- NOTE | 2019-03-24 19:15 | History and Physical Report ---
DATE OF ADMISSION: 03/23/2019 HISTORY OF PRESENT ILLNESS: The patient admitted for encephalopathy, altered mental status. The patient also has history of alcohol abuse and comes from a detention. Denies shortness of breath. Denies cough. Denies fever or chills. Denies abdominal pain. Denies nausea, vomiting, or diarrhea. The patient has alcohol abuse and also we need to rule out DT. PAST MEDICAL HISTORY: History of alcohol abuse, history of constipation, hypertension, arrhythmia, CHF, iron deficiency anemia, hyperlipidemia, psychosis, depression. PAST SURGICAL HISTORY: Left hip surgery. SOCIAL HISTORY: History of smoking, history of drug abuse, history of alcohol abuse, ALLERGIES: To penicillin. MEDICATIONS: Amiodarone, calcium, Coreg, Colace, fenofibrate, ferrous sulfate, isosorbide dinitrate, melatonin, olanzapine, Xarelto, sertraline, spironolactone. FAMILY HISTORY: Noncontributory. REVIEW OF SYSTEMS: HEENT: Denies headaches. RESPIRATORY: Denies shortness of breath. Denies cough. CARDIOVASCULAR: Denies chest pain. GASTROINTESTINAL: Denies nausea, vomiting, or diarrhea. Does have chronic pain. CENTRAL NERVOUS SYSTEMS: Denies any change in vision or speech pattern. Pain is under control. PHYSICAL EXAMINATION: VITAL SIGNS: Temperature 98.1, pulse is 74, blood pressure is 112/66. HEENT: PERRLA. NECK: Supple. No lymphadenopathy. CHEST: Clear to auscultation. CARDIOVASCULAR: Regular rate and rhythm. No murmurs or extra sounds. . GASTROINTESTINAL: Soft, nontender. No organomegaly. Positive bowel sounds. EXTREMITIES: 1+ edema. Reflexes equal on both sides. Moves all four extremities. LABORATORY DATA: WBC of 3.5, hemoglobin of 13, platelets 355. Sodium 140, potassium 3.9, chloride 106, BUN of 18, creatinine 1.1, glucose of 101. ASSESSMENT AND PLAN: Encephalopathy, altered mental status, alcohol abuse, CHF, hypertension. I have asked Dr. Yeboah, Dr. Fournier, and Dr. Chiang to see the patient for pain management as well as for rule out DT as well as for CHF management. Niraj Lau M.D. DR: ANNALISE JOB#: [id number] CC:
--- NOTE | 2019-03-24 19:24 | NUR ---
NURSE NOTES: [facility] called this RN at 615pm stating that they had multiple ER patients requiring their services and so would be able to do abd u/s in morning. Therefore, [facility] asked patient to be NPO after midnite tonite. Ordered as such.
--- NOTE | 2019-03-24 19:32 | NUR ---
NURSE NOTE: Received report from Masoud JENKINS Pt is A/Ox4 with stable VS. Fall precautions, skin is intact and heels are floated on a pillow. Call light is within reach. Patient seems to be in no distress at this moment. Will continue to monitor and follow plan of care.
--- NOTE | 2019-03-24 20:53 | NUR ---
CASE MANAGEMENT: REVIEW 64Y/FEMALE BIBA FROM [facility] CC: AMS . SI: ENCEPHALOPATHY T 98.4 HR 110 RR 18 BP 170/93 SAT 94% ROOM AIR WBC 3.5 ALK PHOS 153 IS: ALBUTEROL HHN X1 NS IVF BOLUS X1 PATIENT ADMITTED TO MED/SURG UNIT 03/23/2019 DCP: PATIENT IS FROM [facility]
[2019-03-25] VITALS: BP 125/72
[2019-03-25 04:00] VITALS: BP 112/68
--- NOTE | 2019-03-25 07:46 | NUR ---
NURSE NOTES: pt in bed awake and talking. Pt on cardiac nurse specialist no signs of cardiac or respiratory distress at this time. Pt NPO, and awaiting ab US. Bed is locked and in lowest position. call light is within reach. Will continue to follow plans of care. Pt refused labs this morning.
[2019-03-25 08:00] VITALS: BP 116/80
[2019-03-25] MEDS ORDERED: Xarelto 10mg tab ORAL SCH (09:00)
[2019-03-25] MEDS ORDERED: Docusate 100mg cap ORAL SCH (09:00)
[2019-03-25] MEDS ORDERED: Sertraline 50mg tab ORAL SCH (09:00)
[2019-03-25] MEDS: Docusate 100mg cap ORAL SCH ×4 (09:00→18:00)
[2019-03-25] MEDS ORDERED: Spironolactone 50mg tab ORAL SCH (09:00)
[2019-03-25] MEDS ORDERED: Thiamine 100mg tab ORAL SCH (09:00)
[2019-03-25] MEDS: Thiamine 100mg tab ORAL SCH (09:37)
[2019-03-25] MEDS: Sertraline 50mg tab ORAL SCH (09:37)
[2019-03-25] MEDS: Spironolactone 50mg tab ORAL SCH (09:38)
[2019-03-25] MEDS: Xarelto 10mg tab ORAL SCH (09:39)
--- NOTE | 2019-03-25 10:02 | NUR ---
PT Note Patient has been transferred to Telemetry unit. Will hold off on PT at this time till new order is received to resume physical therapy.
--- NOTE | 2019-03-25 10:14 | Nephrology Progress Note ---
Assessment/Plan Problem List: (1) Encephalopathy (2) Cardiomyopathy (3) Cirrhosis Assessment h/o Cardiomyopathy h/o Cirrhosis ETOH abuse Schizophrenia Mild Anemia Plan refuses blood work DC IV 2D Echo keep BP under control Per Psych per orders Subjective ROS Limited/Unobtainable: No Interval Events/Complaints refuses lab and meds at times Constitutional: Reports: malaise Objective Objective Last 24 Hour Vital Signs Date Time Temp Pulse Resp B/P (MAP) Pulse Ox O2 Delivery O2 Flow Rate FiO2 03/25/19 09:00 69 96/67 03/25/19 06:00 112/68 03/25/19 04:00 63 03/25/19 04:00 98.3 69 18 112/68 (83) 96 03/25/19 00:00 98.6 66 18 125/72 (89) 96 03/25/19 00:00 67 03/24/19 21:26 123/78 03/24/19 21:26 64 123/78 03/24/19 20:00 97.7 64 18 123/78 (93) 95 03/24/19 20:00 60 03/24/19 18:36 98.2 68 17 137/75 (95) 95 03/24/19 18:29 98.5 62 16 136/83 (100) 97 03/24/19 16:00 98.6 18 16 136/83 (100) 97 62 03/24/19 12:00 98.5 62 16 136/83 (100) 97 Intake and Output 03/24/19 03/25/19 19:00 07:00 Intake Total 390 ml Output Total 175 ml Balance 215 ml Intake Oral 390 ml Output Urine Total 175 ml # Voids 1 Height (Feet): 5 Height (Inches): 2.00 Weight (Pounds): 160 General Appearance: no apparent distress Respiratory/Chest: decreased breath sounds Abdomen: soft Objective no change Mike Yeboah MD Mar 25, 2019 10:14
--- NOTE | 2019-03-25 10:58 | General Progress Note ---
Assessment/Plan Problem List: (1) Leukopenia ICD Codes: D72.819 - Decreased white blood cell count, unspecified SNOMED: 53830721, 688753366 (2) Encephalopathy ICD Codes: G93.40 - Encephalopathy, unspecified SNOMED: 60288493, 703375896 (3) Cardiomyopathy ICD Codes: I42.9 - Cardiomyopathy, unspecified SNOMED: 32989631 (4) Cirrhosis ICD Codes: K74.60 - Unspecified cirrhosis of liver SNOMED: 22231857 Status: stable, progressing Assessment/Plan: pt ot diet cbc bmp am Subjective Constitutional: Reports: weakness Allergies: Coded Allergies: PENICILLINS (Verified Allergy, Intermediate, Hives, 03/23/19) All Systems: reviewed and negative except above Subjective sleepy calm Objective Last 24 Hour Vital Signs Date Time Temp Pulse Resp B/P (MAP) Pulse Ox O2 Delivery O2 Flow Rate FiO2 03/25/19 09:00 69 96/67 03/25/19 06:00 112/68 03/25/19 04:00 63 03/25/19 04:00 98.3 69 18 112/68 (83) 96 03/25/19 00:00 98.6 66 18 125/72 (89) 96 03/25/19 00:00 67 03/24/19 21:26 123/78 03/24/19 21:26 64 123/78 03/24/19 20:00 97.7 64 18 123/78 (93) 95 03/24/19 20:00 60 03/24/19 18:36 98.2 68 17 137/75 (95) 95 03/24/19 18:29 98.5 62 16 136/83 (100) 97 03/24/19 16:00 98.6 18 16 136/83 (100) 97 62 03/24/19 12:00 98.5 62 16 136/83 (100) 97 Intake and Output 03/24/19 03/25/19 19:00 07:00 Intake Total 390 ml Output Total 175 ml Balance 215 ml Intake Oral 390 ml Output Urine Total 175 ml # Voids 1 Height (Feet): 5 Height (Inches): 2.00 Weight (Pounds): 160 General Appearance: lethargic EENT: normal ENT inspection Neck: normal alignment Cardiovascular: normal peripheral pulses, normal rate, regular rhythm Respiratory/Chest: chest wall non-tender, lungs clear, normal breath sounds Abdomen: normal bowel sounds, non tender, soft Extremities: normal inspection Edema: no edema noted Arm (L), no edema noted Arm (R), no edema noted Leg (L), no edema noted Leg (R), no edema noted Pedal (L), no edema noted Pedal (R), no edema noted Generalized Neurologic: motor weakness Skin: normal pigmentation, warm/dry Michael Malhotra DO Mar 25, 2019 10:58
[2019-03-25 12:00] VITALS: BP 98/60
--- NOTE | 2019-03-25 13:44 | NUR ---
CASE MANAGEMENT: REVIEW 03/25/2019 SI:ENCEPHALOPATHY. T 98.5 HR 72 RR 18 B/P 116/80 SATS 92% ON RA LABS: NO LABS TODAY IS: ISORDIL PO Q8H COREG PO Q12H PROTONIX PO Q12H LIPITOR PO QHS TRICOR PO QHS ZYPREXA PO QD XARELTO PO QD TELE STATUS PLAN OF CARE: PT EVAL 2D ECHO
--- NOTE | 2019-03-25 13:52 | NUR ---
INSURANCE CLINICALS AND REVIEWS FAXED TO [facility] WILL TRACK/AUTH ADMISSION NCM:ARIADNE P:[phone] FAX CLINICALS TO: [phone]
--- NOTE | 2019-03-25 15:37 | NUR ---
NURSE NOTES: pt refused colace and said she wants to have 1400 med later because she is sleepy.
[2019-03-25 16:00] VITALS: BP 108/71
--- NOTE | 2019-03-25 19:30 | NUR ---
NURSE NOTES: Received patient from Shante JENKINS. Patient awake, alert and oriented x3, on room air, no s/s of respiratory distress. Bed in low position, locked, call light within reach.
--- NOTE | 2019-03-25 19:42 | NUR ---
HAND-OFF: Report given to Francisco Javier/dustin pt in stable condition .
[2019-03-25 20:00] VITALS: BP 108/67
[2019-03-26 04:00] VITALS: BP 105/68
--- NOTE | 2019-03-26 05:35 | NUR ---
CASE MANAGEMENT: REVIEW 03/26/2019 SI:ENCEPHALOPATHY. T 98.6 HR 67 RR 18 B/P 105/68 SATS 96% ON RA CBC/BMP PENDING IS: ISORDIL PO Q8H COREG PO Q12H PROTONIX PO Q12H LIPITOR PO QHS TRICOR PO QHS ZYPREXA PO QD XARELTO PO QD TELE STATUS PLAN OF CARE: 2D ECHO EF 40-45%
--- NOTE | 2019-03-26 07:12 | NUR ---
NURSE NOTES: pt is stable condition Aox4, having breakfast now. Pt on monitor worker, no signs of cardiac or respiratory distress at this time. Pt refusing lab again this morning. Call light within reach. Bed is in lowest position and locked. Will continue to monitor pt.
[2019-03-26 08:00] VITALS: BP 101/64
[2019-03-26] MEDS: Xarelto 10mg tab ORAL SCH (08:57)
[2019-03-26] MEDS: Spironolactone 50mg tab ORAL SCH (08:57)
[2019-03-26] MEDS: Thiamine 100mg tab ORAL SCH (08:58)
[2019-03-26] MEDS: Sertraline 50mg tab ORAL SCH (08:58)
[2019-03-26] MEDS: Docusate 100mg cap ORAL SCH ×3 (08:59→17:56)
[2019-03-26 09:21] LABS: HEMATOCRIT 35.3 % (37.0-47.0); HEMOGLOBIN 11.9 G/DL (12.0-16.0); MEAN CORPUSCULAR VOLUME 85 FL (80-99); PLATELET COUNT 329 K/UL (150-450); RED BLOOD COUNT 4.17 M/UL (4.20-5.40); RED CELL DISTRIBUTION WIDTH 12.4 % (11.6-14.8); WHITE BLOOD COUNT 3.1 K/UL (4.8-10.8)
[2019-03-26 09:46] LABS: ANION GAP 9 mmol/L (5-15); BLOOD UREA NITROGEN 21 mg/dL (7-18); CALCIUM 9.1 MG/DL (8.5-10.1); CARBON DIOXIDE 25 MMOL/L (21-32); CHLORIDE 105 MMOL/L (98-107); CREATININE 1.3 MG/DL (0.55-1.30); POTASSIUM 3.8 MMOL/L (3.5-5.1); SODIUM 138 MMOL/L (136-145)
--- NOTE | 2019-03-26 09:58 | General Progress Note ---
Assessment/Plan Problem List: (1) Leukopenia ICD Codes: D72.819 - Decreased white blood cell count, unspecified SNOMED: 78281852, 195434647 (2) Encephalopathy ICD Codes: G93.40 - Encephalopathy, unspecified SNOMED: 39301810, 359818420 (3) Cardiomyopathy ICD Codes: I42.9 - Cardiomyopathy, unspecified SNOMED: 90770809 (4) Cirrhosis ICD Codes: K74.60 - Unspecified cirrhosis of liver SNOMED: 27726625 Status: stable, progressing Assessment/Plan: pt ot diet cbc bmp am Subjective Constitutional: Reports: weakness Allergies: Coded Allergies: PENICILLINS (Verified Allergy, Intermediate, Hives, 03/23/19) All Systems: reviewed and negative except above Subjective sleepy calm Objective Last 24 Hour Vital Signs Date Time Temp Pulse Resp B/P (MAP) Pulse Ox O2 Delivery O2 Flow Rate FiO2 03/26/19 09:00 75 101/64 03/26/19 08:00 97.9 75 18 101/64 (76) 98 03/26/19 06:01 128/78 03/26/19 04:00 68 03/26/19 04:00 98.6 67 18 105/68 (80) 96 03/26/19 00:00 75 03/25/19 21:38 116/66 03/25/19 21:00 Room Air 03/25/19 20:47 81 108/67 03/25/19 20:00 99.1 81 18 108/67 (81) 96 03/25/19 20:00 80 03/25/19 16:00 70 03/25/19 16:00 98.1 70 18 108/71 (83) 96 03/25/19 15:33 108/71 03/25/19 12:00 97.7 71 20 98/60 (73) 94 03/25/19 12:00 70 Intake and Output 03/25/19 03/26/19 19:00 07:00 Intake Total 390 ml Balance 390 ml Intake Oral 390 ml # Voids 1 3 # Bowel Movements 1 1 Laboratory Tests 03/26/19 09:05: White Blood Count 3.1L, Red Blood Count 4.17L, Hemoglobin 11.9L, Hematocrit 35.3L, Mean Corpuscular Volume 85, Mean Corpuscular Hemoglobin 28.5, Mean Corpuscular Hemoglobin Concent 33.6, Red Cell Distribution Width 12.4, Platelet Count 329, Mean Platelet Volume 4.7L, Neutrophils (%) (Auto) , Lymphocytes (%) ( Auto) , Monocytes (%) (Auto) , Eosinophils (%) (Auto) , Basophils (%) (Auto) , Neutrophils % (Manual) [Pending], Lymphocytes % (Manual) [Pending], Platelet Estimate [Pending], Platelet Morphology [Pending], Sodium Level 138, Potassium Level 3.8, Chloride Level 105, Carbon Dioxide Level 25, Anion Gap 9, Blood Urea Nitrogen 21H, Creatinine 1.3, Estimat Glomerular Filtration Rate 50.2, Glucose Level 118H, Calcium Level 9.1 Height (Feet): 5 Height (Inches): 2.00 Weight (Pounds): 160 General Appearance: lethargic EENT: normal ENT inspection Neck: normal alignment Cardiovascular: normal rate Respiratory/Chest: chest wall non-tender, lungs clear, normal breath sounds Abdomen: normal bowel sounds, non tender, soft Extremities: normal inspection Edema: no edema noted Arm (L), no edema noted Arm (R), no edema noted Leg (L), no edema noted Leg (R), no edema noted Pedal (L), no edema noted Pedal (R), no edema noted Generalized Neurologic: motor weakness Skin: normal pigmentation, warm/dry Michael Malhotra DO Mar 26, 2019 09:58
--- NOTE | 2019-03-26 11:00 | NUR ---
NURSE NOTES: reported new labs to Dr. Malhotra.
--- NOTE | 2019-03-26 11:33 | General Progress Note ---
Assessment/Plan Assessment/Plan: (1) B/L Hip pain (2) B/L Hip osteoarthritis Patient to be continued on Lidoderm patch D/w Dr. Chiang and he concurred. Subjective Date patient seen: Mar 26, 2019 Time patient seen: 11:00 - am Allergies: Coded Allergies: PENICILLINS (Verified Allergy, Intermediate, Hives, 03/23/19) Subjective REVIEW OF SYSTEMS: Denies rash, fever, chills, sweating, dizziness, drowsiness, blurred vision, sore throat, or change in her weight. No chest pain, palpitations, or cough. No nausea, vomiting, diarrhea, or blood in the stool or urine. No bowel or bladder incontinence. No dysuria. SUBJECTIVE: Patient is in bed denies pain at this time and is comfortable with no new complaints. Objective Last 24 Hour Vital Signs Date Time Temp Pulse Resp B/P (MAP) Pulse Ox O2 Delivery O2 Flow Rate FiO2 03/26/19 09:00 75 101/64 03/26/19 08:00 97.9 75 18 101/64 (76) 98 03/26/19 06:01 128/78 03/26/19 04:00 68 03/26/19 04:00 98.6 67 18 105/68 (80) 96 03/26/19 00:00 75 03/25/19 21:38 116/66 03/25/19 21:00 Room Air 03/25/19 20:47 81 108/67 03/25/19 20:00 99.1 81 18 108/67 (81) 96 03/25/19 20:00 80 03/25/19 16:00 70 03/25/19 16:00 98.1 70 18 108/71 (83) 96 03/25/19 15:33 108/71 03/25/19 12:00 97.7 71 20 98/60 (73) 94 03/25/19 12:00 70 Intake and Output 03/25/19 03/26/19 19:00 07:00 Intake Total 390 ml Balance 390 ml Intake Oral 390 ml # Voids 1 3 # Bowel Movements 1 1 Laboratory Tests 03/26/19 09:05: White Blood Count 3.1L, Red Blood Count 4.17L, Hemoglobin 11.9L, Hematocrit 35.3L, Mean Corpuscular Volume 85, Mean Corpuscular Hemoglobin 28.5, Mean Corpuscular Hemoglobin Concent 33.6, Red Cell Distribution Width 12.4, Platelet Count 329, Mean Platelet Volume 4.7L, Neutrophils (%) (Auto) , Lymphocytes (%) ( Auto) , Monocytes (%) (Auto) , Eosinophils (%) (Auto) , Basophils (%) (Auto) , Differential Total Cells Counted 100, Neutrophils % (Manual) 46, Lymphocytes % ( Manual) 34, Monocytes % (Manual) 13H, Eosinophils % (Manual) 6H, Basophils % ( Manual) 0, Myelocytes % 1H, Band Neutrophils 0, Platelet Estimate Adequate, Platelet Morphology Normal, Red Blood Cell Morphology Normal, Sodium Level 138, Potassium Level 3.8, Chloride Level 105, Carbon Dioxide Level 25, Anion Gap 9, Blood Urea Nitrogen 21H, Creatinine 1.3, Estimat Glomerular Filtration Rate 50.2 , Glucose Level 118H, Calcium Level 9.1 Height (Feet): 5 Height (Inches): 2.00 Weight (Pounds): 160 Objective GENERAL: Alert, awake, and oriented. LUNGS: Clear bilaterally. HEART: S1 and S2 regular. ABDOMEN: Soft, nontender. EXTREMITIES: No cyanosis. No clubbing. NEURO: No changes. Adrián Heller Mar 26, 2019 11:33
--- NOTE | 2019-03-26 11:39 | Nephrology Progress Note ---
Assessment/Plan Problem List: (1) Encephalopathy (2) Cardiomyopathy (3) Cirrhosis Assessment h/o Cardiomyopathy h/o Cirrhosis ETOH abuse Schizophrenia Mild Anemia Plan DC IV 2D Echo 40% Ej Fx keep BP under control Per Psych per orders Subjective ROS Limited/Unobtainable: No Objective Objective Last 24 Hour Vital Signs Date Time Temp Pulse Resp B/P (MAP) Pulse Ox O2 Delivery O2 Flow Rate FiO2 03/26/19 09:00 75 101/64 03/26/19 08:00 97.9 75 18 101/64 (76) 98 03/26/19 06:01 128/78 03/26/19 04:00 68 03/26/19 04:00 98.6 67 18 105/68 (80) 96 03/26/19 00:00 75 03/25/19 21:38 116/66 03/25/19 21:00 Room Air 03/25/19 20:47 81 108/67 03/25/19 20:00 99.1 81 18 108/67 (81) 96 03/25/19 20:00 80 03/25/19 16:00 70 03/25/19 16:00 98.1 70 18 108/71 (83) 96 03/25/19 15:33 108/71 03/25/19 12:00 97.7 71 20 98/60 (73) 94 03/25/19 12:00 70 Intake and Output 03/25/19 03/26/19 19:00 07:00 Intake Total 390 ml Balance 390 ml Intake Oral 390 ml # Voids 1 3 # Bowel Movements 1 1 Laboratory Tests 03/26/19 09:05: White Blood Count 3.1L, Red Blood Count 4.17L, Hemoglobin 11.9L, Hematocrit 35.3L, Mean Corpuscular Volume 85, Mean Corpuscular Hemoglobin 28.5, Mean Corpuscular Hemoglobin Concent 33.6, Red Cell Distribution Width 12.4, Platelet Count 329, Mean Platelet Volume 4.7L, Neutrophils (%) (Auto) , Lymphocytes (%) ( Auto) , Monocytes (%) (Auto) , Eosinophils (%) (Auto) , Basophils (%) (Auto) , Differential Total Cells Counted 100, Neutrophils % (Manual) 46, Lymphocytes % ( Manual) 34, Monocytes % (Manual) 13H, Eosinophils % (Manual) 6H, Basophils % ( Manual) 0, Myelocytes % 1H, Band Neutrophils 0, Platelet Estimate Adequate, Platelet Morphology Normal, Red Blood Cell Morphology Normal, Sodium Level 138, Potassium Level 3.8, Chloride Level 105, Carbon Dioxide Level 25, Anion Gap 9, Blood Urea Nitrogen 21H, Creatinine 1.3, Estimat Glomerular Filtration Rate 50.2 , Glucose Level 118H, Calcium Level 9.1 Height (Feet): 5 Height (Inches): 2.00 Weight (Pounds): 160 General Appearance: no apparent distress Objective no change Mike Yeboah MD Mar 26, 2019 11:39
[2019-03-26 12:00] VITALS: BP 103/62
[2019-03-26 16:00] VITALS: BP 100/68
--- NOTE | 2019-03-26 17:25 | NUR ---
NURSE NOTES: pt pulled out IV access and mixed animal veterinarian. pt refuses to get new IV started.
--- NOTE | 2019-03-26 19:30 | NUR ---
NURSE NOTES: DC heparin and aspirin for pt. due to urine slightly pink. Addendum: 03/26/19 at 1934 by Shante Moon RN NOte was done for Wrong pt. disregard previous not.
--- NOTE | 2019-03-26 19:45 | NUR ---
NURSE NOTES: Received pt and report from ALICE Frey. Observed pt resting in bed with both eyes open and watching television. Pt is A/Ox2-3. court recording monitor is in placed. Pt currently has no IV access. Pt refused IV reinsertion with dayshift RN. Will attempt IV access again. Bed is in the lowest position and locked. Call light within reach. Pt is on neutropenic precaution. No signs/symptoms of acute distress noted at this time. Will continue plan of care.
--- NOTE | 2019-03-26 19:55 | NUR ---
HAND-OFF: Report given to Kenna/RN.
[2019-03-26 20:00] VITALS: BP 112/66
[2019-03-27] VITALS: BP 111/77
--- NOTE | 2019-03-27 | NUR ---
NURSE NOTES: Successfully inserted IV access on RT FA 18G saline locked.
[2019-03-27 04:00] VITALS: BP 106/75
--- NOTE | 2019-03-27 06:03 | Hematology/Onc Progress Note ---
Assessment/Plan Assessment/Plan Assessment and Recs: # Leukopenia -- multiple etiologies could be related to underlying liver disease , medication-induced, infection versus viral syndrome --> peripheral smear has been ordered and does not show significant abnormalities --> Medications have been reviewed --> Continue to monitor for improvement, trend cbc --> Hep panel and HIV have been ordered --> US abd ordered to r/o cirrhosis and hepatosplenomegaly --> reverse isolation if ANC is <2000 --> Give neupogen if ANC <1000 --> wbc trend 3.5-->3.2-->3.1 # Anemia of chronic disease --> currently downtrending 13-->11.8-->11.9 --> has been started on folic acid 1mg po daily --> anemia panel if hgb <10 # Hyperproteinemia --> given it has improved on 2nd day less likely mm --> monitor in future as needed # ELevation alk phos --> ggt is elevated --> likely related to liver damage # Encephalopathy # Dvt ppx scds The timing of this note does not necessarily reflect the time of the patient was seen. Greatly appreciate consultation. Subjective HEENT: Denies: no symptoms, eye pain, blurred vision, tearing, double vision, ear pain, ear discharge, nose pain, nose congestion, throat pain, throat swelling, mouth pain, mouth swelling, other Cardiovascular: Denies: no symptoms, chest pain, edema, irregular heart rate, lightheadedness, palpitations, syncope, other Respiratory: Denies: no symptoms, cough, shortness of breath, SOB with excertion, SOB at rest, sputum, wheezing, other Gastrointestinal/Abdominal: Denies: no symptoms, abdomen distended, abdominal pain, black stools, tarry stools, blood in stool, constipated, diarrhea, difficulty swallowing, nausea, poor appetite, poor fluid intake, rectal bleeding , vomiting, other Genitourinary: Denies: no symptoms, burning, discharge, frequency, flank pain, hematuria, incontinence, pain, urgency, other Neurologic/Psychiatric: Denies: no symptoms, anxiety, depressed, emotional problems, headache, numbness, paresthesia, pre-existing deficit, seizure, tingling, tremors, weakness, other Endocrine: Denies: no symptoms, excessive sweating, flushing, intolerance to cold, intolerance to heat, increased hunger, increased thirst, increased urine, unexplained weight gain, unexplained weight loss, other Allergies: Coded Allergies: PENICILLINS (Verified Allergy, Intermediate, Hives, 03/23/19) Subjective 03/27: A+O x2, no bleeding or chills noted, labs reviewed, wbc remains low, on neutrop precautions Objective Objective Current Medications Medications (Trade) Dose Ordered Sig/Jesús Route PRN Reason Start Time Stop Time Status Last Admin Dose Admin Acetaminophen (Tylenol) 500 mg Q4H PRN ORAL Mild Pain/Temp > 100.5 03/24/19 19:45 04/23/19 19:44 Atorvastatin Calcium (Lipitor) 10 mg BEDTIME ORAL 03/24/19 21:00 04/23/19 20:59 03/26/19 21:01 Carvedilol (Coreg) 3.125 mg EVERY 12 HOURS ORAL 03/24/19 21:00 04/22/19 20:59 03/26/19 21:01 Docusate Sodium (Colace) 100 mg TID ORAL 03/25/19 09:00 04/23/19 08:59 03/26/19 13:00 Fenofibrate (Tricor) 54 mg BEDTIME ORAL 03/24/19 21:00 04/23/19 20:59 03/26/19 21:01 Folic Acid (Folate) 2 mg DAILY ORAL 03/25/19 09:00 04/23/19 10:29 03/26/19 08:58 Isosorbide Dinitrate (Isordil) 20 mg EVERY 8 HOURS ORAL 03/24/19 22:00 04/22/19 21:59 03/27/19 05:29 Lidocaine (Lidoderm 5% PATCH) 1 patch DAILY TDERMAL 03/25/19 09:00 04/23/19 09:29 03/26/19 08:58 Olanzapine (ZyPREXA) 5 mg DAILY ORAL 03/25/19 09:00 04/23/19 08:59 03/26/19 08:57 Pantoprazole (Protonix) 40 mg EVERY 12 HOURS ORAL 03/24/19 21:00 04/22/19 20:59 03/26/19 21:01 Rivaroxaban (Xarelto) 20 mg DAILY ORAL 03/25/19 09:00 04/23/19 08:59 03/26/19 08:57 Sertraline HCl (Zoloft) 50 mg DAILY ORAL 03/25/19 09:00 04/23/19 08:59 03/26/19 08:58 Spironolactone (Aldactone) 50 mg DAILY ORAL 03/25/19 09:00 04/23/19 08:59 03/26/19 08:57 Thiamine HCl (Vitamin B1) 100 mg DAILY ORAL 03/25/19 09:00 04/23/19 08:59 03/26/19 08:58 Last 24 Hour Vital Signs Date Time Temp Pulse Resp B/P (MAP) Pulse Ox O2 Delivery O2 Flow Rate FiO2 03/27/19 05:29 110/74 03/27/19 04:00 61 03/27/19 04:00 97.0 62 17 106/75 (85) 96 03/27/19 00:00 97.2 68 17 111/77 (88) 95 03/27/19 00:00 68 03/26/19 21:55 112/66 03/26/19 21:01 68 112/66 03/26/19 21:00 Room Air 03/26/19 20:00 97.7 68 18 112/66 (81) 94 03/26/19 20:00 70 03/26/19 16:00 70 03/26/19 16:00 98.3 73 18 100/68 (79) 96 03/26/19 14:19 109/71 03/26/19 12:00 74 03/26/19 12:00 98.5 76 20 103/62 (76) 97 03/26/19 09:00 Room Air 03/26/19 09:00 75 101/64 03/26/19 08:00 97.9 75 18 101/64 (76) 98 03/26/19 08:00 71 03/26/19 06:01 128/78 03/26/19 04:00 68 03/26/19 04:00 98.6 67 18 105/68 (80) 96 03/26/19 00:00 75 03/25/19 21:38 116/66 03/25/19 21:00 Room Air 03/25/19 20:47 81 108/67 03/25/19 20:00 99.1 81 18 108/67 (81) 96 03/25/19 20:00 80 03/25/19 16:00 70 03/25/19 16:00 98.1 70 18 108/71 (83) 96 03/25/19 15:33 108/71 03/25/19 12:00 97.7 71 20 98/60 (73) 94 03/25/19 12:00 70 03/25/19 09:00 Room Air 03/25/19 09:00 69 96/67 03/25/19 08:00 98.5 71 18 116/80 (92) 92 03/25/19 08:00 72 Intake and Output 03/26/19 03/27/19 19:00 07:00 Intake Total 360 ml 160 ml Output Total 450 ml Balance -90 ml 160 ml Intake Oral 360 ml 160 ml Output Urine Total 450 ml # Voids 1 # Bowel Movements 2 Labs Test 03/26/19 09:05 White Blood Count 3.1 K/UL (4.8-10.8) Red Blood Count 4.17 M/UL (4.20-5.40) Hemoglobin 11.9 G/DL (12.0-16.0) Hematocrit 35.3 % (37.0-47.0) Mean Corpuscular Volume 85 FL (80-99) Mean Corpuscular Hemoglobin 28.5 PG (27.0-31.0) Mean Corpuscular Hemoglobin Concent 33.6 G/DL (32.0-36.0) Red Cell Distribution Width 12.4 % (11.6-14.8) Platelet Count 329 K/UL (150-450) Mean Platelet Volume 4.7 FL (6.5-10.1) Neutrophils (%) (Auto) % (45.0-75.0) Lymphocytes (%) (Auto) % (20.0-45.0) Monocytes (%) (Auto) % (1.0-10.0) Eosinophils (%) (Auto) % (0.0-3.0) Basophils (%) (Auto) % (0.0-2.0) Differential Total Cells Counted 100 Neutrophils % (Manual) 46 % (45-75) Lymphocytes % (Manual) 34 % (20-45) Monocytes % (Manual) 13 % (1-10) Eosinophils % (Manual) 6 % (0-3) Basophils % (Manual) 0 % (0-2) Myelocytes % 1 % (0-0) Band Neutrophils 0 % (0-8) Platelet Estimate Adequate Platelet Morphology Normal Red Blood Cell Morphology Normal Sodium Level 138 MMOL/L (136-145) Potassium Level 3.8 MMOL/L (3.5-5.1) Chloride Level 105 MMOL/L (98-107) Carbon Dioxide Level 25 MMOL/L (21-32) Anion Gap 9 mmol/L (5-15) Blood Urea Nitrogen 21 mg/dL (7-18) Creatinine 1.3 MG/DL (0.55-1.30) Estimat Glomerular Filtration Rate 50.2 mL/min (>60) Glucose Level 118 MG/DL (74-106) Calcium Level 9.1 MG/DL (8.5-10.1) Height (Feet): 5 Height (Inches): 2.00 Weight (Pounds): 160 Objective Physical Exam: Vitals: reviewed General Appearance: NAD HEENT: normocephalic, atraumatic Neck: non-tender, normal alignment Respiratory/Chest: normal breath sounds bilaterally Cardiovascular/Chest: normal peripheral pulses, normal rate Abdomen: normal bowel sounds, soft, nontender Extremities: normal range of motion Jose Cheung MD Mar 27, 2019 06:03
[2019-03-27 07:39] LABS: BASOPHILS % (AUTO) 4.6 % (0.0-2.0); EOSINOPHILS % (AUTO) 3.8 % (0.0-3.0); HEMATOCRIT 35.6 % (37.0-47.0); HEMOGLOBIN 12.2 G/DL (12.0-16.0); LYMPHOCYTES % (AUTO) 15.6 % (20.0-45.0); MEAN CORPUSCULAR VOLUME 85 FL (80-99); MONOCYTES % (AUTO) 18.1 % (1.0-10.0); NEUTROPHILS % (AUTO) 57.8 % (45.0-75.0); PLATELET COUNT 321 K/UL (150-450); RED CELL DISTRIBUTION WIDTH 12.1 % (11.6-14.8); WHITE BLOOD COUNT 3.7 K/UL (4.8-10.8)
--- NOTE | 2019-03-27 07:40 | NUR ---
NURSE NOTES: Received report from ALICE Pierson. The patient is having a breakfast on the bed without acute distress or shortness of breath. The patient's bed in the lowest position, call light in reach, and fall and aspiration precaution reinforced. IV site intact and patent. Neutropenic precaution reinforced. Will continue plan of care.
--- NOTE | 2019-03-27 07:44 | NUR ---
HAND-OFF: Report given to ALICE Martino. Pt is in stable condition. Plan of care endorsed.
[2019-03-27 08:00] VITALS: BP 118/63
--- NOTE | 2019-03-27 08:01 | NUR ---
NURSE NOTES: Dr Lau called and gave order to dc pt to any facility, continue home meds, dc hospital meds.
--- NOTE | 2019-03-27 08:26 | General Progress Note ---
Assessment/Plan Assessment/Plan: (1) B/L Hip pain (2) B/L Hip osteoarthritis Patient to be continued on Lidoderm patch D/w Dr. Chiang and he concurred. Subjective Date patient seen: Mar 27, 2019 Time patient seen: 08:15 - am Allergies: Coded Allergies: PENICILLINS (Verified Allergy, Intermediate, Hives, 03/23/19) Subjective REVIEW OF SYSTEMS: Denies rash, fever, chills, sweating, dizziness, drowsiness, blurred vision, sore throat, or change in her weight. No chest pain, palpitations, or cough. No nausea, vomiting, diarrhea, or blood in the stool or urine. SUBJECTIVE: Patient continues to be tolerating the pain on the Lidoderm patch and has no new complaints at this time. Objective Last 24 Hour Vital Signs Date Time Temp Pulse Resp B/P (MAP) Pulse Ox O2 Delivery O2 Flow Rate FiO2 03/27/19 08:00 98.5 65 18 118/63 (81) 96 03/27/19 05:29 110/74 03/27/19 04:00 61 03/27/19 04:00 97.0 62 17 106/75 (85) 96 03/27/19 00:00 97.2 68 17 111/77 (88) 95 03/27/19 00:00 68 03/26/19 21:55 112/66 03/26/19 21:01 68 112/66 03/26/19 21:00 Room Air 03/26/19 20:00 97.7 68 18 112/66 (81) 94 03/26/19 20:00 70 03/26/19 16:00 70 03/26/19 16:00 98.3 73 18 100/68 (79) 96 03/26/19 14:19 109/71 03/26/19 12:00 74 03/26/19 12:00 98.5 76 20 103/62 (76) 97 03/26/19 09:00 Room Air 03/26/19 09:00 75 101/64 Intake and Output 03/26/19 03/27/19 19:00 07:00 Intake Total 360 ml 160 ml Output Total 450 ml Balance -90 ml 160 ml Intake Oral 360 ml 160 ml Output Urine Total 450 ml # Voids 1 # Bowel Movements 2 Laboratory Tests 03/26/19 09:05: White Blood Count 3.1L, Red Blood Count 4.17L, Hemoglobin 11.9L, Hematocrit 35.3L, Mean Corpuscular Volume 85, Mean Corpuscular Hemoglobin 28.5, Mean Corpuscular Hemoglobin Concent 33.6, Red Cell Distribution Width 12.4, Platelet Count 329, Mean Platelet Volume 4.7L, Neutrophils (%) (Auto) , Lymphocytes (%) ( Auto) , Monocytes (%) (Auto) , Eosinophils (%) (Auto) , Basophils (%) (Auto) , Differential Total Cells Counted 100, Neutrophils % (Manual) 46, Lymphocytes % ( Manual) 34, Monocytes % (Manual) 13H, Eosinophils % (Manual) 6H, Basophils % ( Manual) 0, Myelocytes % 1H, Band Neutrophils 0, Platelet Estimate Adequate, Platelet Morphology Normal, Red Blood Cell Morphology Normal, Sodium Level 138, Potassium Level 3.8, Chloride Level 105, Carbon Dioxide Level 25, Anion Gap 9, Blood Urea Nitrogen 21H, Creatinine 1.3, Estimat Glomerular Filtration Rate 50.2 , Glucose Level 118H, Calcium Level 9.1 03/27/19 06:06: White Blood Count 3.7L, Red Blood Count 4.20, Hemoglobin 12.2, Hematocrit 35.6L , Mean Corpuscular Volume 85, Mean Corpuscular Hemoglobin 29.0, Mean Corpuscular Hemoglobin Concent 34.2, Red Cell Distribution Width 12.1, Platelet Count 321, Mean Platelet Volume 5.0L, Neutrophils (%) (Auto) 57.8, Lymphocytes ( %) (Auto) 15.6L, Monocytes (%) (Auto) 18.1H, Eosinophils (%) (Auto) 3.8H, Basophils (%) (Auto) 4.6H, Sodium Level [Pending], Potassium Level [Pending], Chloride Level [Pending], Carbon Dioxide Level [Pending], Blood Urea Nitrogen [ Pending], Creatinine [Pending], Estimat Glomerular Filtration Rate [Pending], Glucose Level [Pending], Calcium Level [Pending], Total Protein (PEP) [Pending] , Albumin (PEP) [Pending], Globulin (PEP) [Pending], Albumin/Globulin Ratio [ Pending], Igwyj-0-Oipquqkra [Pending], Yroor-3-Pxceatvls [Pending], Beta Globulins [Pending], Beta Gamma Globulin [Pending], PEP Abnormal Protein Bands [ Pending], Protein Electrophoresis Interpret [Pending] Height (Feet): 5 Height (Inches): 2.00 Weight (Pounds): 160 Objective GENERAL: Alert, awake, and oriented. LUNGS: Clear bilaterally. HEART: S1 and S2 regular. ABDOMEN: Soft, nontender. EXTREMITIES: No cyanosis. No clubbing. NEURO: No changes. Adrián Heller Mar 27, 2019 08:26
[2019-03-27 08:38] LABS: ANION GAP 8 mmol/L (5-15); BLOOD UREA NITROGEN 18 mg/dL (7-18); CALCIUM 9.8 MG/DL (8.5-10.1); CARBON DIOXIDE 26 MMOL/L (21-32); CHLORIDE 105 MMOL/L (98-107); CREATININE 1.3 MG/DL (0.55-1.30); SODIUM 139 MMOL/L (136-145)
--- NOTE | 2019-03-27 09:00 | NUR ---
NURSE NOTES: Communicated with Dr. Lau regarding discharge order and pending exam for Dr. Cheung. Per Dr. Lau, still do not cancel discharge order as the placement takes while. Will continue plan of care.
[2019-03-27] MEDS: Spironolactone 50mg tab ORAL SCH (09:45)
[2019-03-27] MEDS: Docusate 100mg cap ORAL SCH ×3 (09:45→17:07)
[2019-03-27] MEDS: Xarelto 10mg tab ORAL SCH (09:46)
[2019-03-27] MEDS: Thiamine 100mg tab ORAL SCH (09:46)
[2019-03-27] MEDS: Sertraline 50mg tab ORAL SCH (09:47)
--- NOTE | 2019-03-27 10:13 | Nephrology Progress Note ---
Assessment/Plan Problem List: (1) Encephalopathy (2) Cardiomyopathy (3) Cirrhosis Assessment h/o Cardiomyopathy h/o Cirrhosis ETOH abuse Schizophrenia Mild Anemia Plan DC IV 2D Echo 40% Ej Fx keep BP under control Per Psych per orders ? DC planning Subjective ROS Limited/Unobtainable: No Constitutional: Reports: malaise Objective Objective Last 24 Hour Vital Signs Date Time Temp Pulse Resp B/P (MAP) Pulse Ox O2 Delivery O2 Flow Rate FiO2 03/27/19 09:45 65 118/63 03/27/19 08:00 98.5 65 18 118/63 (81) 96 03/27/19 05:29 110/74 03/27/19 04:00 61 03/27/19 04:00 97.0 62 17 106/75 (85) 96 03/27/19 00:00 97.2 68 17 111/77 (88) 95 03/27/19 00:00 68 03/26/19 21:55 112/66 03/26/19 21:01 68 112/66 03/26/19 21:00 Room Air 03/26/19 20:00 97.7 68 18 112/66 (81) 94 03/26/19 20:00 70 03/26/19 16:00 70 03/26/19 16:00 98.3 73 18 100/68 (79) 96 03/26/19 14:19 109/71 03/26/19 12:00 74 03/26/19 12:00 98.5 76 20 103/62 (76) 97 Intake and Output 03/26/19 03/27/19 19:00 07:00 Intake Total 360 ml 160 ml Output Total 450 ml Balance -90 ml 160 ml Intake Oral 360 ml 160 ml Output Urine Total 450 ml # Voids 1 # Bowel Movements 2 Laboratory Tests 03/27/19 06:06: White Blood Count 3.7L, Red Blood Count 4.20, Hemoglobin 12.2, Hematocrit 35.6L , Mean Corpuscular Volume 85, Mean Corpuscular Hemoglobin 29.0, Mean Corpuscular Hemoglobin Concent 34.2, Red Cell Distribution Width 12.1, Platelet Count 321, Mean Platelet Volume 5.0L, Neutrophils (%) (Auto) 57.8, Lymphocytes ( %) (Auto) 15.6L, Monocytes (%) (Auto) 18.1H, Eosinophils (%) (Auto) 3.8H, Basophils (%) (Auto) 4.6H, Sodium Level 139, Potassium Level 4.0, Chloride Level 105, Carbon Dioxide Level 26, Anion Gap 8, Blood Urea Nitrogen 18, Creatinine 1.3, Estimat Glomerular Filtration Rate 50.2, Glucose Level 91, Calcium Level 9.8, Total Protein (PEP) [Pending], Albumin (PEP) [Pending], Globulin (PEP) [Pending], Albumin/Globulin Ratio [Pending], Cevwj-3-Afojndgue [ Pending], Onyfh-5-Mkypmazho [Pending], Beta Globulins [Pending], Beta Gamma Globulin [Pending], PEP Abnormal Protein Bands [Pending], Protein Electrophoresis Interpret [Pending] Height (Feet): 5 Height (Inches): 2.00 Weight (Pounds): 160 General Appearance: no apparent distress Objective no change Mike Yeboah MD Mar 27, 2019 10:13
--- NOTE | 2019-03-27 10:41 | Cardiac Electrophysiology PN ---
Assessment/Plan Assessment/Plan 1. History of DVT. The patient is on Xarelto 20 mg daily. 2. CHF EF 40% EKG SR and echocardiogram EF 40-45% . Transferred the patient to telemetry. 3. Hypertension, on Coreg 3.125 mg b.i.d. and Aldactone 50 mg daily.DC Isordil. Add Lisinopril 10 daily and Lasix 40 and decrease Aldactone to 25 4. Coronary artery disease. Currently denies any chest pain. On Coreg 5. hyperlipidemia, on TriCor. 6. History of schizophrenia, on Zyprexa. 7. Altered mental status, etiology remains unclear at this time. AYLA RN Subjective Subjective Remained in SR. Alert in NAD. DC planning today. Having abd US Objective Last 24 Hour Vital Signs Date Time Temp Pulse Resp B/P (MAP) Pulse Ox O2 Delivery O2 Flow Rate FiO2 03/27/19 09:45 65 118/63 03/27/19 09:00 Room Air 03/27/19 08:00 98.5 65 18 118/63 (81) 96 03/27/19 05:29 110/74 03/27/19 04:00 61 03/27/19 04:00 97.0 62 17 106/75 (85) 96 03/27/19 00:00 97.2 68 17 111/77 (88) 95 03/27/19 00:00 68 03/26/19 21:55 112/66 03/26/19 21:01 68 112/66 03/26/19 21:00 Room Air 03/26/19 20:00 97.7 68 18 112/66 (81) 94 03/26/19 20:00 70 03/26/19 16:00 70 03/26/19 16:00 98.3 73 18 100/68 (79) 96 03/26/19 14:19 109/71 03/26/19 12:00 74 03/26/19 12:00 98.5 76 20 103/62 (76) 97 Intake and Output 03/26/19 03/27/19 18:59 06:59 Intake Total 360 ml 160 ml Output Total 450 ml Balance -90 ml 160 ml Intake Oral 360 ml 160 ml Output Urine Total 450 ml # Voids 1 # Bowel Movements 2 Laboratory Tests Test 03/27/19 06:06 White Blood Count 3.7 K/UL (4.8-10.8) L Red Blood Count 4.20 M/UL (4.20-5.40) Hemoglobin 12.2 G/DL (12.0-16.0) Hematocrit 35.6 % (37.0-47.0) L Mean Corpuscular Volume 85 FL (80-99) Mean Corpuscular Hemoglobin 29.0 PG (27.0-31.0) Mean Corpuscular Hemoglobin Concent 34.2 G/DL (32.0-36.0) Red Cell Distribution Width 12.1 % (11.6-14.8) Platelet Count 321 K/UL (150-450) Mean Platelet Volume 5.0 FL (6.5-10.1) L Neutrophils (%) (Auto) 57.8 % (45.0-75.0) Lymphocytes (%) (Auto) 15.6 % (20.0-45.0) L Monocytes (%) (Auto) 18.1 % (1.0-10.0) H Eosinophils (%) (Auto) 3.8 % (0.0-3.0) H Basophils (%) (Auto) 4.6 % (0.0-2.0) H Sodium Level 139 MMOL/L (136-145) Potassium Level 4.0 MMOL/L (3.5-5.1) Chloride Level 105 MMOL/L (98-107) Carbon Dioxide Level 26 MMOL/L (21-32) Anion Gap 8 mmol/L (5-15) Blood Urea Nitrogen 18 mg/dL (7-18) Creatinine 1.3 MG/DL (0.55-1.30) Estimat Glomerular Filtration Rate 50.2 mL/min (>60) Glucose Level 91 MG/DL (74-106) Calcium Level 9.8 MG/DL (8.5-10.1) Total Protein (PEP) Pending Albumin (PEP) Pending Globulin (PEP) Pending Albumin/Globulin Ratio Pending Hdqon-6-Hxfnnxlss Pending Ktijs-4-Nqdfiwrre Pending Beta Globulins Pending Beta Gamma Globulin Pending PEP Abnormal Protein Bands Pending Protein Electrophoresis Interpret Pending Objective HEAD AND NECK: No JVD. LUNGS: Clear. CARDIOVASCULAR: Regular S1 and S2 with no gallop. ABDOMEN: Soft. EXTREMITIES: No pitting edema. Justus Dia MD Mar 27, 2019 10:41
--- NOTE | 2019-03-27 11:16 | NUR ---
*-* INSURANCE *-* UPDATED CLINICALS AND REVIEWS FAXED TO: [facility] WILL TRACK/AUTH ADMISSION NCM:ARIADNE P:[phone] FAX CLINICALS TO: [phone]
--- NOTE | 2019-03-27 11:30 | Diagnostic Imaging Report ---
Indication: Abdominal pain, abnormal liver function tests Technique: Coronado-scale and duplex images of the upper abdomen were obtained Comparison: none Findings: Exam is very limited due to body habitus and limited ability of the patient to cooperate Gallbladder is unremarkable, without stones, wall thickening, nor pericholecystic fluid. Sonographic Arias's sign is negative. Common bile duct measures for mm in diameter. No intrahepatic biliary ductal dilatation. Liver demonstrates coarsened echogenicity. No focal abnormality. No surface nodularity. Portal vein and hepatic veins are patent. Pancreas is obscured by bowel gas. Spleen is unremarkable. Left kidney measures 9.1 cm in length. Right kidney measures 8.6 cm length. Both kidneys demonstrate normal echogenicity. There is no hydronephrosis. No focal abnormality . Abdominal aorta is partially obscured by bowel gas, visualized portions are non-aneurysmal . Impression: Limited exam, as described. Note nonvisualization of the pancreas, limited visualization of the abdominal aorta and left kidney Negative for gallstones or dilated bile ducts Coarsened hepatic echogenicity, likely indicates hepatocellular disease, otherwise nonspecific
[2019-03-27 12:00] VITALS: BP 110/68
--- NOTE | 2019-03-27 13:04 | NUR ---
NURSE NOTES: The patient is stable without acute distress or shortness of breath. Will continue plan of care.
[2019-03-27 16:00] VITALS: BP 130/70
--- NOTE | 2019-03-27 17:18 | NUR ---
CASE MANGER REVIEW SI ENCEPHALOPATHY T 98.5, HR 65, B/P 118/63 RBC 3.7, HCT 35.6 BLOOD CHEMISTRY STILL PENDING ISISORDIL PO Q8H COREG PO Q12H PROTONIX PO Q12H LIPITOR PO QHS TRICOR PO QHS ZYPREXA PO QD XARELTO PO QD TELE STATUS DC PLAN DC TO SNF LOC
--- NOTE | 2019-03-27 19:00 | NUR ---
HAND-OFF: Report given to ALICE Pierson. The patient is resting on the bed without acute distress or shortness of breath. The patient's bed in the lowest position, call light in reach, and fall and aspiration precaution reinforced. IV site intact and patent. Neutropenic precaution reinforced. Endorsed plan of care.
--- NOTE | 2019-03-27 19:30 | NUR ---
NURSE NOTES: Received pt and report from ALICE Martino. Observed pt resting in bed with both eyes open and watching television. Pt is A/Ox3. child support specialist is in placed, IV site intact, asymptomatic, and patent. Bed is in the lowest position and locked. Call light within reach. Pt is on neutropenic precaution. No signs/symptoms of acute distress noted at this time. Will continue plan of care.
[2019-03-27 20:00] VITALS: BP 144/92
--- NOTE | 2019-03-27 20:59 | General Progress Note ---
Assessment/Plan Problem List: (1) Leukopenia ICD Codes: D72.819 - Decreased white blood cell count, unspecified SNOMED: 88788815, 080420654 (2) Encephalopathy ICD Codes: G93.40 - Encephalopathy, unspecified SNOMED: 15121298, 365745771 (3) Cardiomyopathy ICD Codes: I42.9 - Cardiomyopathy, unspecified SNOMED: 89442931 (4) Cirrhosis ICD Codes: K74.60 - Unspecified cirrhosis of liver SNOMED: 34455508 Status: progressing Assessment/Plan: afebrile psychosis ams reviewed chart and labs Subjective ROS Limited/Unobtainable: Yes Allergies: Coded Allergies: PENICILLINS (Verified Allergy, Intermediate, Hives, 03/23/19) Objective Last 24 Hour Vital Signs Date Time Temp Pulse Resp B/P (MAP) Pulse Ox O2 Delivery O2 Flow Rate FiO2 03/27/19 16:00 67 03/27/19 16:00 97.8 65 18 130/70 (90) 95 03/27/19 12:00 98.1 62 18 110/68 (82) 95 03/27/19 12:00 67 03/27/19 09:45 65 118/63 03/27/19 09:00 Room Air 03/27/19 08:00 73 03/27/19 08:00 98.5 65 18 118/63 (81) 96 03/27/19 05:29 110/74 03/27/19 04:00 61 03/27/19 04:00 97.0 62 17 106/75 (85) 96 03/27/19 00:00 97.2 68 17 111/77 (88) 95 03/27/19 00:00 68 03/26/19 21:55 112/66 03/26/19 21:01 68 112/66 03/26/19 21:00 Room Air Intake and Output 03/26/19 03/27/19 19:00 07:00 Intake Total 360 ml 160 ml Output Total 450 ml Balance -90 ml 160 ml Intake Oral 360 ml 160 ml Output Urine Total 450 ml # Voids 1 # Bowel Movements 2 Laboratory Tests 03/27/19 06:06: White Blood Count 3.7L, Red Blood Count 4.20, Hemoglobin 12.2, Hematocrit 35.6L , Mean Corpuscular Volume 85, Mean Corpuscular Hemoglobin 29.0, Mean Corpuscular Hemoglobin Concent 34.2, Red Cell Distribution Width 12.1, Platelet Count 321, Mean Platelet Volume 5.0L, Neutrophils (%) (Auto) 57.8, Lymphocytes ( %) (Auto) 15.6L, Monocytes (%) (Auto) 18.1H, Eosinophils (%) (Auto) 3.8H, Basophils (%) (Auto) 4.6H, Sodium Level 139, Potassium Level 4.0, Chloride Level 105, Carbon Dioxide Level 26, Anion Gap 8, Blood Urea Nitrogen 18, Creatinine 1.3, Estimat Glomerular Filtration Rate 50.2, Glucose Level 91, Calcium Level 9.8, Total Protein (PEP) [Pending], Albumin (PEP) [Pending], Globulin (PEP) [Pending], Albumin/Globulin Ratio [Pending], Qmxiw-1-Ckbbklqmk [ Pending], Nyvjh-4-Eiirtioqa [Pending], Beta Globulins [Pending], Beta Gamma Globulin [Pending], PEP Abnormal Protein Bands [Pending], Protein Electrophoresis Interpret [Pending] Height (Feet): 5 Height (Inches): 2.00 Weight (Pounds): 160 General Appearance: mild distress Cardiovascular: normal rate Respiratory/Chest: lungs clear Niraj Lau MD Mar 27, 2019 20:59
[2019-03-28] VITALS: BP 139/82
--- NOTE | 2019-03-28 03:09 | NUR ---
NURSE NOTES: Pt is asleep in bed comfortably with both eyes closed, arousable to voice. No signs/symptoms of acute distress noted at this time. Will continue plan of care.
[2019-03-28 04:00] VITALS: BP 143/70
--- NOTE | 2019-03-28 07:44 | NUR ---
HAND-OFF: Report given to ALICE Frey. Pt is in stable condition. Plan of care endorsed.
[2019-03-28 08:00] VITALS: BP 129/73
--- NOTE | 2019-03-28 08:06 | Hematology/Onc Progress Note ---
Assessment/Plan Assessment/Plan Assessment and Recs: # Leukopenia -- multiple etiologies could be related to underlying liver disease , medication-induced, infection versus viral syndrome, in this case has hepatocellular disease --> peripheral smear has been ordered and does not show significant abnormalities --> Medications have been reviewed --> Continue to monitor for improvement, trend cbc --> Hep panel and HIV have been ordered --> US abd ordered to r/o cirrhosis and hepatosplenomegaly --> DOES SHOW hepatocellular disease --> reverse isolation if ANC is <2000 --> Give neupogen if ANC <1000 --> wbc trend 3.5-->3.2-->3.1-->3.5 # Deep vein thrombosis lower ext --> continue on xarelto 20mg po daily --> reviewed cards recs # Anemia of chronic disease --> currently downtrending 13-->11.8-->11.9-->12 --> has been started on folic acid 1mg po daily --> anemia panel if hgb <10 # Hyperproteinemia --> given it has improved on 2nd day less likely mm --> monitor in future as needed # ELevation alk phos --> ggt is elevated --> likely related to liver damage # Encephalopathy # Dvt ppx scds The timing of this note does not necessarily reflect the time of the patient was seen. Greatly appreciate consultation. Subjective Constitutional: Denies: no symptoms, chills, fever, malaise, weakness, other HEENT: Denies: no symptoms, eye pain, blurred vision, tearing, double vision, ear pain, ear discharge, nose pain, nose congestion, throat pain, throat swelling, mouth pain, mouth swelling, other Cardiovascular: Denies: no symptoms, chest pain, edema, irregular heart rate, lightheadedness, palpitations, syncope, other Respiratory: Denies: no symptoms, cough, shortness of breath, SOB with excertion, SOB at rest, sputum, wheezing, other Gastrointestinal/Abdominal: Denies: no symptoms, abdomen distended, abdominal pain, black stools, tarry stools, blood in stool, constipated, diarrhea, difficulty swallowing, nausea, poor appetite, poor fluid intake, rectal bleeding , vomiting, other Genitourinary: Denies: no symptoms, burning, discharge, frequency, flank pain, hematuria, incontinence, pain, urgency, other Endocrine: Denies: no symptoms, excessive sweating, flushing, intolerance to cold, intolerance to heat, increased hunger, increased thirst, increased urine, unexplained weight gain, unexplained weight loss, other Allergies: Coded Allergies: PENICILLINS (Verified Allergy, Intermediate, Hives, 03/23/19) Subjective 03/27: A+O x2, no bleeding or chills noted, labs reviewed, wbc remains low, on neutrop precautions 03/28; no events to report, no bleeding, on neutropenic precautios Objective Objective Current Medications Medications (Trade) Dose Ordered Sig/Jesús Route PRN Reason Start Time Stop Time Status Last Admin Dose Admin Acetaminophen (Tylenol) 500 mg Q4H PRN ORAL Mild Pain/Temp > 100.5 03/24/19 19:45 04/23/19 19:44 Atorvastatin Calcium (Lipitor) 10 mg BEDTIME ORAL 03/24/19 21:00 04/23/19 20:59 03/27/19 21:19 Carvedilol (Coreg) 3.125 mg EVERY 12 HOURS ORAL 03/24/19 21:00 04/22/19 20:59 03/27/19 21:23 Docusate Sodium (Colace) 100 mg TID ORAL 03/25/19 09:00 04/23/19 08:59 03/27/19 09:45 Fenofibrate (Tricor) 54 mg BEDTIME ORAL 03/24/19 21:00 04/23/19 20:59 03/27/19 21:19 Folic Acid (Folate) 2 mg DAILY ORAL 03/25/19 09:00 04/23/19 10:29 03/27/19 09:46 Furosemide (Lasix) 40 mg DAILY ORAL 03/28/19 09:00 04/27/19 08:59 Lidocaine (Lidoderm 5% PATCH) 1 patch DAILY TDERMAL 03/25/19 09:00 04/23/19 09:29 03/27/19 09:47 Lisinopril (Zestril) 10 mg DAILY ORAL 03/28/19 09:00 04/27/19 08:59 Olanzapine (ZyPREXA) 5 mg DAILY ORAL 03/25/19 09:00 04/23/19 08:59 03/27/19 09:47 Pantoprazole (Protonix) 40 mg EVERY 12 HOURS ORAL 03/24/19 21:00 04/22/19 20:59 03/27/19 21:18 Rivaroxaban (Xarelto) 20 mg DAILY ORAL 03/25/19 09:00 04/23/19 08:59 03/27/19 09:46 Sertraline HCl (Zoloft) 50 mg DAILY ORAL 03/25/19 09:00 04/23/19 08:59 03/27/19 09:47 Spironolactone (Aldactone) 25 mg DAILY ORAL 03/28/19 09:00 04/23/19 08:59 Thiamine HCl (Vitamin B1) 100 mg DAILY ORAL 03/25/19 09:00 04/23/19 08:59 03/27/19 09:46 Last 24 Hour Vital Signs Date Time Temp Pulse Resp B/P (MAP) Pulse Ox O2 Delivery O2 Flow Rate FiO2 03/28/19 04:00 97.3 60 19 143/70 (94) 96 03/28/19 04:00 62 03/28/19 00:00 61 03/28/19 00:00 97.1 63 18 139/82 (101) 94 03/27/19 21:23 65 144/92 03/27/19 21:00 Room Air 03/27/19 20:00 62 03/27/19 20:00 97.9 65 17 144/92 (109) 95 03/27/19 16:00 67 03/27/19 16:00 97.8 65 18 130/70 (90) 95 03/27/19 12:00 98.1 62 18 110/68 (82) 95 03/27/19 12:00 67 03/27/19 09:45 65 118/63 03/27/19 09:00 Room Air 03/27/19 08:00 73 03/27/19 08:00 98.5 65 18 118/63 (81) 96 03/27/19 05:29 110/74 03/27/19 04:00 61 03/27/19 04:00 97.0 62 17 106/75 (85) 96 03/27/19 00:00 97.2 68 17 111/77 (88) 95 03/27/19 00:00 68 03/26/19 21:55 112/66 03/26/19 21:01 68 112/66 03/26/19 21:00 Room Air 03/26/19 20:00 97.7 68 18 112/66 (81) 94 03/26/19 20:00 70 03/26/19 16:00 70 03/26/19 16:00 98.3 73 18 100/68 (79) 96 03/26/19 14:19 109/71 03/26/19 12:00 74 03/26/19 12:00 98.5 76 20 103/62 (76) 97 03/26/19 09:00 Room Air 03/26/19 09:00 75 101/64 Intake and Output 03/27/19 03/28/19 19:00 07:00 Intake Total 970 ml 280 ml Output Total 550 ml Balance 420 ml 280 ml Intake Oral 970 ml 280 ml Output Urine Total 550 ml # Voids 2 3 Labs Test 03/26/19 09:05 03/27/19 06:06 White Blood Count 3.1 K/UL (4.8-10.8) 3.7 K/UL (4.8-10.8) Red Blood Count 4.17 M/UL (4.20-5.40) 4.20 M/UL (4.20-5.40) Hemoglobin 11.9 G/DL (12.0-16.0) 12.2 G/DL (12.0-16.0) Hematocrit 35.3 % (37.0-47.0) 35.6 % (37.0-47.0) Mean Corpuscular Volume 85 FL (80-99) 85 FL (80-99) Mean Corpuscular Hemoglobin 28.5 PG (27.0-31.0) 29.0 PG (27.0-31.0) Mean Corpuscular Hemoglobin Concent 33.6 G/DL (32.0-36.0) 34.2 G/DL (32.0-36.0) Red Cell Distribution Width 12.4 % (11.6-14.8) 12.1 % (11.6-14.8) Platelet Count 329 K/UL (150-450) 321 K/UL (150-450) Mean Platelet Volume 4.7 FL (6.5-10.1) 5.0 FL (6.5-10.1) Neutrophils (%) (Auto) % (45.0-75.0) 57.8 % (45.0-75.0) Lymphocytes (%) (Auto) % (20.0-45.0) 15.6 % (20.0-45.0) Monocytes (%) (Auto) % (1.0-10.0) 18.1 % (1.0-10.0) Eosinophils (%) (Auto) % (0.0-3.0) 3.8 % (0.0-3.0) Basophils (%) (Auto) % (0.0-2.0) 4.6 % (0.0-2.0) Differential Total Cells Counted 100 Neutrophils % (Manual) 46 % (45-75) Lymphocytes % (Manual) 34 % (20-45) Monocytes % (Manual) 13 % (1-10) Eosinophils % (Manual) 6 % (0-3) Basophils % (Manual) 0 % (0-2) Myelocytes % 1 % (0-0) Band Neutrophils 0 % (0-8) Platelet Estimate Adequate Platelet Morphology Normal Red Blood Cell Morphology Normal Sodium Level 138 MMOL/L (136-145) 139 MMOL/L (136-145) Potassium Level 3.8 MMOL/L (3.5-5.1) 4.0 MMOL/L (3.5-5.1) Chloride Level 105 MMOL/L (98-107) 105 MMOL/L (98-107) Carbon Dioxide Level 25 MMOL/L (21-32) 26 MMOL/L (21-32) Anion Gap 9 mmol/L (5-15) 8 mmol/L (5-15) Blood Urea Nitrogen 21 mg/dL (7-18) 18 mg/dL (7-18) Creatinine 1.3 MG/DL (0.55-1.30) 1.3 MG/DL (0.55-1.30) Estimat Glomerular Filtration Rate 50.2 mL/min (>60) 50.2 mL/min (>60) Glucose Level 118 MG/DL (74-106) 91 MG/DL (74-106) Calcium Level 9.1 MG/DL (8.5-10.1) 9.8 MG/DL (8.5-10.1) Height (Feet): 5 Height (Inches): 2.00 Weight (Pounds): 160 Objective Physical Exam: Vitals: reviewed General Appearance: NAD HEENT: normocephalic, atraumatic Neck: non-tender, normal alignment Respiratory/Chest: normal breath sounds bilaterally Cardiovascular/Chest: normal peripheral pulses, normal rate Abdomen: normal bowel sounds, soft, nontender Extremities: normal range of motion Jose Cheung MD Mar 28, 2019 08:06
--- NOTE | 2019-03-28 08:59 | NUR ---
NURSE NOTES: Pt in bed sitting eating and eating. Call light within reach and bed locked and in lowest position . Pt on court recording monitor no signs of cardiac or respiratory distress at this time. will continue to monitor pt.
[2019-03-28] MEDS ORDERED: Lisinopril 10mg tab ORAL SCH (09:00)
[2019-03-28] MEDS ORDERED: Spironolactone 25mg tab ORAL SCH (09:00)
[2019-03-28] MEDS ORDERED: Furosemide 40mg tab ORAL SCH (09:00)
[2019-03-28] MEDS: Docusate 100mg cap ORAL SCH ×2 (09:00→12:06)
--- NOTE | 2019-03-28 09:00 | General Progress Note ---
Assessment/Plan Assessment/Plan: (1) B/L Hip pain (2) B/L Hip osteoarthritis Patient to be continued on Lidoderm patch D/w Dr. Chiang and he concurred. Subjective Date patient seen: Mar 28, 2019 Time patient seen: 08:15 - am Allergies: Coded Allergies: PENICILLINS (Verified Allergy, Intermediate, Hives, 03/23/19) Subjective REVIEW OF SYSTEMS: Denies rash, fever, chills, sweating, dizziness, drowsiness, blurred vision, sore throat, or change in her weight. No chest pain, palpitations, or cough. No nausea, vomiting, diarrhea, or blood in the stool or urine. SUBJECTIVE: Patient shows no signs of pain or distress. She continues to c/o hip pain which has been tolerated on the Lidoderm patch. No new complaints at this time. Objective Last 24 Hour Vital Signs Date Time Temp Pulse Resp B/P (MAP) Pulse Ox O2 Delivery O2 Flow Rate FiO2 03/28/19 04:00 97.3 60 19 143/70 (94) 96 03/28/19 04:00 62 03/28/19 00:00 61 03/28/19 00:00 97.1 63 18 139/82 (101) 94 03/27/19 21:23 65 144/92 03/27/19 21:00 Room Air 03/27/19 20:00 62 03/27/19 20:00 97.9 65 17 144/92 (109) 95 03/27/19 16:00 67 03/27/19 16:00 97.8 65 18 130/70 (90) 95 03/27/19 12:00 98.1 62 18 110/68 (82) 95 03/27/19 12:00 67 03/27/19 09:45 65 118/63 03/27/19 09:00 Room Air Intake and Output 03/27/19 03/28/19 19:00 07:00 Intake Total 970 ml 280 ml Output Total 550 ml Balance 420 ml 280 ml Intake Oral 970 ml 280 ml Output Urine Total 550 ml # Voids 2 3 Height (Feet): 5 Height (Inches): 2.00 Weight (Pounds): 160 Objective GENERAL: Alert, awake, and oriented. LUNGS: Clear bilaterally. HEART: S1 and S2 regular. ABDOMEN: Soft, nontender. EXTREMITIES: No cyanosis. No clubbing. NEURO: No changes. Adrián Heller Mar 28, 2019 09:00
--- NOTE | 2019-03-28 10:24 | Cardiac Electrophysiology PN ---
Assessment/Plan Assessment/Plan 1. History of DVT. The patient is on Xarelto 20 mg daily. 2. CHF EF 40% EKG SR and echocardiogram EF 40-45% . On Coreg 3.125 mg b.i.d., Lisinopril 10 daily, Lasix 40 and Aldactone 25 daily 3. Hypertension, stable on current regimen 4. Coronary artery disease. Currently denies any chest pain. On Coreg 5. hyperlipidemia, on TriCor. 6. History of schizophrenia, on Zyprexa. 7. Altered mental status, etiology remains unclear at this time. 8. Placement issue DW RN Subjective Subjective Remained in SR.S/P abd US. Lowest HR was 53. Objective Last 24 Hour Vital Signs Date Time Temp Pulse Resp B/P (MAP) Pulse Ox O2 Delivery O2 Flow Rate FiO2 03/28/19 08:00 98.7 64 18 129/73 (91) 95 03/28/19 04:00 97.3 60 19 143/70 (94) 96 03/28/19 04:00 62 03/28/19 00:00 61 03/28/19 00:00 97.1 63 18 139/82 (101) 94 03/27/19 21:23 65 144/92 03/27/19 21:00 Room Air 03/27/19 20:00 62 03/27/19 20:00 97.9 65 17 144/92 (109) 95 03/27/19 16:00 67 03/27/19 16:00 97.8 65 18 130/70 (90) 95 03/27/19 12:00 98.1 62 18 110/68 (82) 95 03/27/19 12:00 67 Intake and Output 03/27/19 03/28/19 19:00 07:00 Intake Total 970 ml 280 ml Output Total 550 ml Balance 420 ml 280 ml Intake Oral 970 ml 280 ml Output Urine Total 550 ml # Voids 2 3 Objective HEAD AND NECK: No JVD. LUNGS: Clear. CARDIOVASCULAR: Regular S1 and S2 with no gallop. ABDOMEN: Soft. EXTREMITIES: No pitting edema. Justus Dia MD Mar 28, 2019 10:23
--- NOTE | 2019-03-28 10:43 | Nephrology Progress Note ---
Assessment/Plan Problem List: (1) Encephalopathy (2) Cardiomyopathy (3) Cirrhosis Assessment h/o Cardiomyopathy h/o Cirrhosis ETOH abuse Schizophrenia Mild Anemia Plan No labs today DC IV 2D Echo 40% Ej Fx keep BP under control Per Psych per orders ? DC planning Subjective ROS Limited/Unobtainable: No Objective Objective Last 24 Hour Vital Signs Date Time Temp Pulse Resp B/P (MAP) Pulse Ox O2 Delivery O2 Flow Rate FiO2 03/28/19 08:00 98.7 64 18 129/73 (91) 95 03/28/19 04:00 97.3 60 19 143/70 (94) 96 03/28/19 04:00 62 03/28/19 00:00 61 03/28/19 00:00 97.1 63 18 139/82 (101) 94 03/27/19 21:23 65 144/92 03/27/19 21:00 Room Air 03/27/19 20:00 62 03/27/19 20:00 97.9 65 17 144/92 (109) 95 03/27/19 16:00 67 03/27/19 16:00 97.8 65 18 130/70 (90) 95 03/27/19 12:00 98.1 62 18 110/68 (82) 95 03/27/19 12:00 67 Intake and Output 03/27/19 03/28/19 19:00 07:00 Intake Total 970 ml 280 ml Output Total 550 ml Balance 420 ml 280 ml Intake Oral 970 ml 280 ml Output Urine Total 550 ml # Voids 2 3 Height (Feet): 5 Height (Inches): 2.00 Weight (Pounds): 160 General Appearance: no apparent distress Objective no change Mike Yeboah MD Mar 28, 2019 10:43
[2019-03-28] MEDS: Sertraline 50mg tab ORAL SCH (11:53)
[2019-03-28 11:54] VITALS: BP 119/46
[2019-03-28] MEDS: Xarelto 10mg tab ORAL SCH (11:55)
[2019-03-28] MEDS: Thiamine 100mg tab ORAL SCH (11:55)
--- NOTE | 2019-03-28 12:29 | NUR ---
DISCHARGE PLANNING DISCHARGE ORDER NOTED Patient has been accepted to; [facility] [address] [place] [address] Bed:23-B Skilled [phone] for Nurse to Nurse report [facility] ETA for transportation: 13:00
--- NOTE | 2019-03-28 12:32 | NUR ---
NURSE NOTES: gave report to Hoang at [facility].
--- NOTE | 2019-03-28 12:36 | NUR ---
NURSE NOTES: L/M SNS message with daughter pt is being DC. to [facility], unable to leave voice mail because it was full. Also contacted Son Baldev and tel is busy called him 2 times.
--- NOTE | 2019-03-28 15:40 | NUR ---
*-* INSURANCE *-* UPDATED CLINICALS AND REVIEWS and DISCHARGE ARSEN FAXED TO: [facility] WILL TRACK/AUTH ADMISSION NCM:ARIADNE P:[phone] FAX CLINICALS TO: [phone]
--- NOTE | 2019-03-28 15:50 | NUR ---
NURSE NOTES: pt left the hospital back to [facility] via gurney. Protective mask was placed on pt for protection since she is on Neutropenic precautions. ekg monitor was taken off from pt, no signs of Cardiac or respiratory distress at this time, pt is in stable condition. IV was discontinued and covered with 4x4 gauze, assessed site , site is not bleeding. Pt belongings were checked and reviewed with pt before discharge. Pt acknowledge that she has all her belongings in order, and with her so she signed belonging sheet. Medications list was reviewed with pt, pt is to continue home meds, and pt is aware and was able to to verbalized information back to nurse.
--- NOTE | 2019-03-31 09:57 | Discharge Summary ---
Discharge Summary Discharge Summary _ DATE OF ADMISSION: 03/23/2019 DATE OF DISCHARGE: 03/28/2019 DISCHARGED BY: REASON FOR ADMISSION: 64 years old female with past medical history of congestive heart failure, cardiomyopathy, hyperlipidemia, coronary artery disease, liver cirrhosis, DVT left lower extremity, GERD, history of CVA, COPD, schizophrenia, was sent from the long-term facility for altered mental status. Patient appeared to be more confused than usual. History was limited by patient being a poor historian. No reported fever or chills ; no vomiting or diarrhea. Upon evaluation patient was tachycardic with heart rate 110, blood pressure was elevated 170/93. Laboratory work-up revealed WBC 3.5, hemoglobin 13, hematocrit 38.8 , platelet count 355. Stable electrolytes and renal parameters. Glucose 101. Urine toxicology screen was negative. Urinalysis revealed no evidence of urinary tract infection. Patient subsequently to telemetry floor for further management. CONSULTANTS: supervisor soldering Dr. Laird cash management officer Dr. Yeboah data assistant/oncologist Dr. Cheung pain specialist Dr. Chiang [facility]: Patient admitted to telemetry floor. Patient initially was on gentle IV hydration. Echocardiogram revealed ejection fraction of 40% to o 45%. Global left ventricular hypokinesis. Right ventricular systolic pressure of 30. IV fluids discontinued Guideline directed medical therapy with beta-debora, GOVIND inhibitor Lasix and Aldactone continued. Manager Payment followed. Anticoagulation with Xarelto continued due to history of DVT. Blood pressure initially elevated in ED, stabilized on current regimen. Patient declined any chest pain. Lipid panel revealed elevated LDL. Cardiac low-fat diet provided. Statin continued. Patient counseled on compliance with medications and diet. LFT remained stable. Abdominal ultrasound demonstrated no evidence of gallstones or dilated bile ducts. Coarsened hepatic echogenicity, likely indicative of hepatocellular disease. Hepatitis panel was negative. HIV test was nonreactive. Per data assistant, leukopenia was probably related to underlying liver disease. WBC 3.7 upon discharge. Noted low folate level. Folic acid and thiamine initiated. Supportive care provided. Psychiatric medication regimen with Zoloft and Zyprexa continued. Bowel regimen instituted. Supportive care provided. Patient clinically stabilized and was ready for discharge to long-term facility for continuation of care. FINAL DIAGNOSES: Encephalopathy Cardiomyopathy , with ejection fraction 40%-45% Congestive heart failure Coronary artery disease Hypertension Hyperlipidemia Leukopenia, likely due to underlying liver disease Cirrhosis History of DVT left lower extremity Anemia of chronic disease Bilateral hip osteoarthritis Schizophrenia DISCHARGE MEDICATIONS: See Medication Reconciliation list. DISCHARGE INSTRUCTIONS: Patient was discharged to the long-term facility. Follow up with medical doctor at the facility. I have been assigned to dictate discharge summary for this account. I was not involved in the patient's management. Fidelia Pyle NP Mar 31, 2019 09:57
--- NOTE | 2019-03-31 15:27 | Cardiology Report ---
APPROVED REPORT EXAM: Two-dimensional and M-mode echocardiogram with Doppler and color Doppler. INDICATION Chest Pain M-Mode DIMENSIONS IVSd0.7 (0.7-1.1cm)Left Atrium (MM)2.2 (1.6-4.0cm) LVDd4.5 (3.5-5.6cm)Aortic Root3.1 (2.0-3.7cm) PWd1.5 (0.7-1.1cm)Aortic Cusp Exc.1.6 (1.5-2.0cm) IVSs1.1 cm LVDs3.0 (2.5-4.0cm) PWs1.4 cm Normal left ventricular chamber size. Global left ventricular hypokinesis . Left ventricular ejection fraction estimated to be 40-45 %. Mild left atrial enlargement . Right cardiac chamber sizes are within normal limits. Focal aortic valve sclerosis with adequate cusp excursion. Thickened mitral valve leaflets with normal excursion. Mitral annulus and aortic root calcification. Pulmonic valve not well visualized. Normal tricuspid valve structure. IVC at 2.0cm without physiologic collapse suggestive of increased RA pressure. A color flow and spectral Doppler study was performed and revealed: No aortic regurgitation. Mild to moderate mitral regurgitation . Mitral diastolic velocities suggest reduced left ventricular relaxation c/w mild LV diastolic dysfunction (Grade I ) Mild tricuspid regurgitation. Tricuspid systolic velocities suggests peak right ventricular systolic pressure of 30 mmHg.
--- NOTE | 2019-04-03 22:30 | Coder Physician Query ---
Clarification is required for compliance, coding accuracy, and to reflect severity of illness for this patient Dear Dr. Lombardi_Hadadz Date: 04/03/19 ____ Cardiac Catheterization Technician/CDS Name: ___Felicia Woods [facility] The patient admitted for encephalopathy and altered mental status. The patient has history of alcohol abuse and comes from a longterm. Patient also has a history of depression, psychosis, and schizophrenia. Laboratory work-up revealed WBC 3.5, hemoglobin 13, hematocrit 38.8 , platelet count 355. Stable electrolytes and renal parameters. Glucose 101. Urine toxicology screen was negative. Urinalysis revealed no evidence of urinary tract infection. Patient had leukopenia that was probably related to underlying liver disease. Please indicate the nature and chronicity of the condition below: [] Metabolic Encephalopathy [] Toxic Encephalopathy [] Toxic - Metabolic Encephalopathy [] Other (specify) [] Unable to determine Please also clarify the cause, or possible cause, of the encephalopathy if known. Physician signature Date Please also document in your Progress Notes and/or Discharge Summary and indicate if the condition was present on admission. ZAKIAD
--- NOTE | 2019-04-14 10:47 | CDS Physician Query ---
Clarification is required for compliance, coding accuracy, and to reflect severity of illness for this patient Dear Mike Brand MD Date: 04/14/2019 Office Support Clerk/CDS Name: Ken Strickland The patient admitted for encephalopathy and altered mental status. The patient has history of alcohol abuse and comes from a shelter. Patient also has a history of depression, psychosis, and schizophrenia. Laboratory work-up revealed WBC 3.5, hemoglobin 13, hematocrit 38.8 , platelet count 355. Stable electrolytes and renal parameters. Glucose 101. Urine toxicology screen was negative. Urinalysis revealed no evidence of urinary tract infection. Patient had leukopenia that was probably related to underlying liver disease. "Altered Mental Status" documented in Progress notes Please indicate the nature and chronicity of the condition below: [] Metabolic Encephalopathy [] Toxic Encephalopathy [] Toxic - Metabolic Encephalopathy [] Encephalopathy, Other [] Dementia with Delirium [] Hypoxic encephalopathy [] Posterior reversible encephalopathy syndrome [] Other: [] Not Applicable Present on Admission: [] Yes [] No [] Clinically Undetermined Physician signature Date Please also document in your Progress Notes and/or Discharge Summary and indicate if the condition was present on admission. MTDD
== END 2019-03-28 14:10 | DRG 52 ==
LOC: EDBD 12:22 → EMR 13:20 → EDBEDREQ 16:04 → 3E 16:10 → 2E 03-24 18:03
DX: G93.41 Metabolic encephalopathy (principal); M16.0 Bilateral primary osteoarthritis of hip; I42.9 Cardiomyopathy, unspecified; K74.60 Unspecified cirrhosis of liver; E78.5 Hyperlipidemia, unspecified; Z79.01 Long term (current) use of anticoagulants; Z88.0 Allergy status to penicillin; I11.0 Hypertensive heart disease with heart failure; I50.9 Heart failure, unspecified; D63.8 Anemia in other chronic diseases classified elsewhere; F20.0 Paranoid schizophrenia; I25.10 Atherosclerotic heart disease of native coronary artery without angina pectoris; F03.90 Unspecified dementia, unspecified severity, without behavioral disturbance, psychotic disturbance, mood disturbance, and anxiety; Z86.718 Personal history of other venous thrombosis and embolism; F10.10 Alcohol abuse, uncomplicated
CPT/HCPCS: 36415; 76700; 80048; 80053; 80061; 80307; 80329; 81001; 82607; 82728; 82746; 82977; 83036; 83540; 83550; 83735; 83880; 84100; 84165; 84443; 84550; 85007; 85025; 86140; 86703; 86705; 86709; 86803; 87081; 87086; 87181; 87340; 93306; 94640; 94664; 99285; J7620